=== PATIENT | male | born 1950 | race Caucasian/White ===

== ENCOUNTER 2024-11-22 13:22 | Outpatient (REF) | payer SELFPAY ==
[2024-11-22 18:48] LABS: HCT 28.1 % (40.0-50.0); HGB 8.7 g/dL (13.5-17.5); MCH 27.8 pg (27.0-33.0); MCV 90 fL (80-95); MPV 10.1 fL (8.0-11.0); Platelet Count 337 10^3/uL (130-400); RBC 3.13 10^6/uL (4.36-5.78); RDW 17.6 % (11.8-14.1); RDW-SD 58.1 fL; WBC 11.34 10^3/uL (4.4-10.8)
[2024-11-22 19:22] LABS: Hemoglobin A1C 5.9 % (<5.7)
[2024-11-22 19:23] LABS: ALT 15 U/L (16-63); AST 11 U/L (15-37); Albumin 2.9 g/dL (3.4-5.0); Alkaline Phosphatase 64 U/L (46-116); Anion Gap 9.2 mmol/L (3-11); BUN 52 mg/dL (7-18); Bilirubin, Total 0.46 mg/dL (0.2-1.0); CO2 25.8 mmol/L (21.0-32.0); Calcium 8.9 mg/dL (8.5-10.1); Calculated LDL 63 mg/dL (<100); Chloride 107 mmol/L (98-107); Cholesterol 120 mg/dL (<200); Estimated GFR 14.11 (mL/min/1.73m2); Glucose 82 mg/dL (74-106); HDL Cholesterol 43 mg/dL (40-60); Sodium 142 mmol/L (136-145); TSH 1.85 uIU/mL (0.36-3.74); Triglyceride 71 mg/dL (<150)
[2024-11-22 19:34] LABS: CREATININE 4.2 mg/dL (0.70-1.30)
[2024-11-22 21:44] LABS: Abs Immature Grans 0.06 10^3/uL (0.0-0.06); Absolute Basophil Count 0.03 10^3/uL (0.0-0.2); Absolute Eosinophil Count 0.01 10^3/uL (0.0-0.7); Absolute Lymphocyte Count 0.75 10^3/uL (1.2-3.4); Absolute Monocyte Count 0.57 10^3/uL (0.1-0.8); Absolute Neutrophil Count 9.83 10^3/uL (1.2-6.7); Basophils % 0.3 %; Eosinophils % 0.1 %; Immature Grans % 0.5 %; Lymphocytes % 6.7 %; Monocytes % 5.1 %; Neutrophils % 87.3 %
== END 2024-11-22 13:23 | disposition home or self-care (01) ==
LOC: NCHCN 13:22
PROVIDERS: Visit Provider Family Medicine
DX: R42 Dizziness and giddiness (principal); R94.31 Abnormal electrocardiogram [ECG] [EKG]
CPT/HCPCS: 80053; 80061; 85027; 83036; 84443; 85025

== ENCOUNTER 2024-11-23 10:18 | Inpatient (IN) | payer MEDICARE, SELFPAY ==
[2024-11-23 10:23] VITALS: BP 145/77; PULSE 66; RESP 16; TEMP 37
[2024-11-23 10:45] VITALS: BP 145/77; PULSE 66; RESP 16; TEMP 37
--- NOTE | 2024-11-23 11:00 | DI.CT_ITS ---
Exam(s) CT ABDOMEN PELVIS WO EXAM: CT ABDOMEN PELVIS WO CLINICAL HISTORY: obstructive uropathy. TECHNIQUE: Imaging Protocol: Axial computed tomography images with coronal and sagittal reformatted images were created and reviewed. Oral: no COMPARISON: US POCUS EXAM from 11/23/2024 FINDINGS: Lung Bases: No acute findings. Liver: Normal density. No suspicious mass. Gallbladder and biliary tract: No radiodense calculus or biliary dilation. Pancreas: Normal density. No abnormal calcifications or inflammatory process. Spleen: Normal. Kidneys: Normal size, contour and axis. No radiodense stones. Moderate to severe bilateral hydroneph rosis. Ureters are dilated down to the ureterovesical junctions bilaterally. No suspicious masses s een. Adrenal glands: No masses seen. Lymph nodes: Within normal limits. Vasculature: Abdominal aorta non-dilated. Soft tissues: Unremarkable. Bladder: Sanchez catheter. No wall thickening. No visible mass or calculi. The density of the contents of the bladder appears higher than normal which could indicate hemorrhage. Bowel: No obstruction or bowel wall thickening. The appendix is normal. Moderate to increased gema tity of stool. Peritoneal cavity: No ascites. No focal collection. No mesenteric inflammatory response. Reproductive organs: Prostate is mildly enlarged. Bones: Spondylolysis and significant spondylolisthesis, approximately 50 percent. Severe narrowing o f the L5-S1 disc. IMPRESSION: Severe bilateral hydronephrosis. The ureter dilated down to the ureterovesical junctions. No obstru cting stones are visible. Findings called to Dr. Silverman of the emergency department. RADIATION DOSE DELIVERED: 405.47mGy.cm Total DLP DATA REPOSITORY: All CT scans at this facility are submitted to the National Radiology Data Registry (NRDR) Dose Index Registry (DIR) with the [employer] [place] ([employer]). RADIATION OPTIMIZATION: All CT scans at this facility use at least one of these dose optimization te chniques: automated exposure control; mA and/or kV adjustment per patient size (includes targeted exa ms where dose is matched to clinical indication); or iterative reconstruction.
--- NOTE | 2024-11-23 11:14 | ED.GENADUL_ITS ---
Discharge Plan Discharge Details Chief Complaint: GenMedical Primary Care Provider: Td Haskins ED Provider: Nancy Silverman Home Meds and New Rx's Prescriptions: No Action No Known Home Meds HPI General Mode of arrival: ambulatory . Date/Time Provider Initiated Documentation: 11/23/24 10:25 . Limitations to Documentation: no limitations . Information obtained by: patient, family and old records reviewed . HPI Narrative: HPI: This is a 73-year-old male patient presenting for evaluation of renal failure identified on outpatient labs. The patient reports that he does not typically go to the doctors at all, does not have any diagnosed medical conditions, but does suffer from tremors. 6 weeks ago he had an episode of fecal incontinence, and had a second 1 last Thursday, which prompted him to seek care with his provider. They ordered outpatient labs, and contact him to let him know that his renal function was quite poor and encouraged him to seek care. The patient reports that he has been feeling largely well for himself, does sta te that he sometimes has difficulty passing urine, feels the urge to go but nothing comes out. He has not noted any dysuria or hematuria, denies abdominal or back pain. Has not had fevers or chills. He has been eating and drinking normally for himself, was drinking 120 ounces of apple juice per day, which was stopped in the setting of the fecal incontinence as it was thought to potentially be contributing. He drinks a gallon of water a day now, states that he does not use any nicotine or tobacco or alcohol products. Exam: Gen: Awake and alert, in no apparent distress HEENT: Non-icteric sclera Neck: Supple Lungs: No apparent respiratory distress, normal respiratory effort. Lung sounds clear and equal bilaterally without wheezes, rhonchi, rales CV: Appears well perfused, heart with regular rate and rhythm, no murmurs Abdomen: Distended lower abdomen with a palpable firm bladder up to the level of the umbilicus, no tenderness to palpation MSK: Moves 4 extremities without apparent limitation in ROM Skin: Visualized skin without rashes, cyanosis. Neuro: Normal Gait, no obvious focal deficits or facial asymmetry. Speaks in full, clear sentences. Psych: Appropriate for situation. MDM: This is a 73-year-old male patient sent from his primary care provider with kidney dysfunction on outpatient labs. Differential includes but is not limited to obstructive uropathy, likely due to prostate disease in this demographic, certainly considered obstructing stones, intra-abdominal mass. Considered kidney injury, metabolic derangements, dehydration, intrinsic abnormalities including nephritic syndrome, ATN, AIN. The patient does not have any excessive NSAID use reported, has been drinking an appropriate amount of water. He has no back pain or recent injuries to suggest a neurologic cause of his bladder dysfunction. We will place a Sanchez catheter given the large volume of urine appreciated on POCUS, with bilateral severe hydronephrosis. We will obtain laboratory studies to include CBC, CMP, magnesium, and troponin. I will obtain a urinalysis as well as a Noncon CT to evaluate for etiology of obstruction. ED Course: I reviewed the patient's laboratory studies, which show no leukocytosis, but does demonstrate an anemia to 7.8, no thrombocytopenia. Chemistry panel with a mildly elevated potassium to 5.3, BUN 58, creatinine 3.9, no liver dysfunction. Troponin was negative, UA concerning for infection with moderate blood, nitrite positive and large leukocyte esterase with pyuria. For this reason I did start the patient on ceftriaxone. He had 1300 cc of outpu t immediately after Sanchez placement, I's and O's monitored to ensure the recognition of postobstructive diuresis if it occurs. I did reach out to our hospitalist who is graciously accepted this patient for admission to their service for ongoing workup and management. Patient remained hemodynamically appropriate while under my care, transferred to the care of the hospitalist service without incident Nancy Silverman MD Related Data Home Medications ?Medication ?Instructions ?Recorded ?Confirmed Unknown [No Known Home Meds] 11/23/24 11/23/24 Allergies Allergy/AdvReac Type Severity Reaction Status Date / Time No Known Allergies Allergy Verified 11/23/24 10:26 General Stated Complaint: GenMedical ANANT: 3 Course Vital Signs Vital signs: Vital Signs Temperature 37.0 C 11/23/24 10:23 Pulse 66 11/23/24 10:23 Respiratory Rate 16 11/23/24 10:23 Blood Pressure 145/77 H 11/23/24 10:23 Temperature 37.0 C 11/23/24 10:45 Temperature Source Oral 11/23/24 10:45 Pulse 66 11/23/24 10:45 Respiratory Rate 16 11/23/24 10:45 Blood Pressure 145/77 H 11/23/24 10:45 Blood Pressure Position Sitting 11/23/24 10:45 Oxygen Delivery Method Room Air 11/23/24 10:45 Oxygen Flow Rate 0 11/23/24 10:45 Pain Level 0 11/23/24 10:45 Medical Decision Making Quality:SDOH Health Related Social Needs: No Data to Display PFSH All Active Problems (Updated 11/23/24 @ 14:35 by Neymar Gary DO) Anemia (Chronic) Renal failure (Chronic) Social History Smoking risk assessment performed?: No Alcohol Intake: former Drug use: Daily Substance use type: marijuana Details: Pt states he used to smoke marijuana daily. Do you feel safe at home: Yes Do you feel safe in your relationship?: Yes POCUS Exam (ED) Limited Bladder Exam DATE OF EXAM: 11/23/24 TIME OF EXAM: 11:20 PROVIDER THAT PERFORMED THE STUDY: Nancy Silverman IS THIS A REPEAT EXAM DURING THIS ENCOUNTER: no REASON FOR EXAM: Urinary retention VISUALIZED STRUCTURES: Bladder PERTINENT FINDINGS/IMPRESSION: other impression: Dilated bladder Exam complete Limited Retroperitoneal(Renal)Exam DATE OF EXAM: 11/23/24 TIME OF EXAM: 11:21 PROVIDER THAT PERFORMED THE STUDY: Nancy Silverman IS THIS A REPEAT EXAM DURING THIS ENCOUNTER: No REASON FOR EXAM: Acute renal failure VISUALIZED STRUCTURES: Left kidney, Right kidney, Renal pelvis,left side and Renal pelvis, right side PERTINENT FINDINGS/IMPRESSION: Hydronephrosis present bilaterally Exam complete
[2024-11-23 12:23] LABS: Bilirubin Negative (Negative); Blood Moderate (Negative); Clarity Sl Cloudy (Clear); Glucose Negative (Negative); Ketones Negative (Negative); Leukocyte Esterase Large (Negative); Nitrite Positive (Negative); Specific Gravity <= 1.005 (1.005-1.025); Urobilinogen 0.2 mg/dL (Up to 0.2); pH 5.5 (5-8)
[2024-11-23 12:35] LABS: Epithelial Cells Few HPF (Negative)
[2024-11-23 12:37] LABS: Bacteria Many HPF (Negative); Crystals Negative HPF (Negative); Mucus Negative (Negative)
[2024-11-23 12:38] LABS: C & S Indicated? Yes; Casts Negative LPF (Negative)
[2024-11-23 12:39] LABS: Abs Immature Grans 0.05 10^3/uL (0.0-0.06); Absolute Basophil Count 0.03 10^3/uL (0.0-0.2); Absolute Eosinophil Count 0.01 10^3/uL (0.0-0.7); Absolute Monocyte Count 0.53 10^3/uL (0.1-0.8); Basophils % 0.3 %; Eosinophils % 0.1 %; HCT 24.9 % (40.0-50.0); HGB 7.8 g/dL (13.5-17.5); Immature Grans % 0.5 %; Lymphocytes % 7.6 %; MCH 27.9 pg (27.0-33.0); MCHC 31.3 % (32.0-36.0); MCV 89 fL (80-95); MPV 9.3 fL (8.0-11.0); Monocytes % 4.9 %; Neutrophils % 86.6 %; Platelet Count 266 10^3/uL (130-400); RDW 17.5 % (11.8-14.1); RDW-SD 57.4 fL; WBC 10.86 10^3/uL (4.4-10.8)
[2024-11-23 12:39] LABS: WBC >50 HPF (0-5)
[2024-11-23 12:50] LABS: Absolute Lymphocyte Count 0.83 10^3/uL (1.2-3.4)
[2024-11-23 13:01] LABS: ALT 15 U/L (16-63); AST 11 U/L (15-37); Albumin 2.6 g/dL (3.4-5.0); Alkaline Phosphatase 58 U/L (46-116); BUN 58 mg/dL (7-18); Bilirubin, Total 0.38 mg/dL (0.2-1.0); Calcium 8.8 mg/dL (8.5-10.1); Chloride 109 mmol/L (98-107); Estimated GFR 15.42 (mL/min/1.73m2); Glucose 95 mg/dL (74-106); Magnesium 2.1 mg/dL (1.8-2.4); Potassium 5.3 mmol/L (3.5-5.1); Sodium 142 mmol/L (136-145); Total Protein 6.9 g/dL (6.4-8.2); Troponin I 7 ng/L (<or=76)
[2024-11-23 13:02] LABS: CREATININE 3.9 mg/dL (0.70-1.30)
[2024-11-23] MEDS: cefTRIAXone 1 GM/50 ML BAG IVPB (13:30)
--- NOTE | 2024-11-23 14:24 | HPE_ITS ---
Date of service: 11/23/24 Time of Service: 14:24 Assessment and Plan Assessment and plan (1) Renal failure: Status: Chronic Assessment and plan: - suspect this is post-renal obstruction considering findings. BPH/UTI may be contributing. suspect this is also etiology of his bowel dysfunction - maintain carrillo for now - given CTX in ER, will continue this for now pending cultures - check PSA - urology consultation (Dr. Wood is not available today but we can touch base tomorrow) (2) Anemia: Status: Chronic Assessment and plan: - unclear if this is related to LAURY or if this a separate finding. normocytic - heme check stool - check Fe/TIBC/B12/folate - i did discuss potential need for colonoscopy as part of workup, can pursue this as outpatient History of Present Illness History of Present Illness Chief Complaint: bowel incontinence/vertigo N arrative: This is a 73 yo male with no pmhx that has not seen a physician in 40 years until yesterday that presents today with bowel incontinence, vertigo, and abnormal labwork. Patient is accompanied by daughter and is a limited historian. For approx 8 weeks, patient has noted that he has had uncontrollable incontinence of bowels. Stool was loose, roving frame tender colored, and watery. No blood. No abd pain. No n/v. Did have a generalized feeling of sick but was not able to localize this further. However, he did note that he was consuming large amounts of fluids (120 oz daily of apple juice or water) and was not having much urination despite feeling pressure. Eventually was brought for new patient appointment yesterday and had labwork. Was called later in the day (7pm) and told that he should present to the ER but had just started dinner so did not come until this AM. In ER, workup revealed significant LAURY with b/l hydro, all likely due to urinary retention. Carrillo was placed and patient had 1300cc diuresis of purulent urine. Review of Systems Constitutional Constitutional: Reports lethargy, Reports malaise and Reports poor appetite ENT Ears, Nose, Mouth, and Throat: Denies odynophagia Cardiovascular Cardiovascular: Denies chest pain, Denies irregular heart rhythm, Denies leg edema and Denies dyspnea Respiratory Respiratory: Denies cough and Denies dyspnea Gastrointestinal Gastrointestinal: Denies abdominal pain, Denies melena, Denies hematochezia, Reports change in stool character, Denies coffee ground emesis, Reports fecal incontinence, Denies odynophagia and Denies vomiting Genitourinary Genitourinary: Denies hematuria, Reports oliguria, Reports difficulty urinating, Denies dysuria, Denies flank pain and Denies nocturia Neurologic Neurologic: Reports system reviewed and no additional complaints, except as documented Endocrine Endocrine: Reports system reviewed and no additional complaints, except as documented Hematologic/Lymphatic Hematologic/Lymphatic: Reports system reviewed and no additional complaints, except as documented Allergic/Immunologic Allergic/Immunologic: Reports system reviewed and no additional complaints, except as documented PFSH All Active Problems (Updated 11/23/24 @ 14:35 by Neymar Gary DO) Anemia (Chronic) Renal failure (Chronic) Social History Smoking risk assessment performed?: No Alcohol Intake: former Drug use: Daily Substance use type: marijuana Details: Pt states he used to smoke marijuana daily. Do you feel safe at home: Yes Do you feel safe in your relationship?: Yes Meds Allergies and Home Medications Allergies Allergy/AdvReac Type Severity Reaction Status Date / Time No Known Allergies Allergy Verified 11/23/24 10:26 Home Medications ?Medication ?Instructions ?Recorded ?Confirmed ?Type Unknown [No Known Home Meds] 11/23/24 11/23/24 History Exam Const General: cooperative, comfortable and no acute distress Nutritional Appearance: thin Orientation: alert, awake and oriented x3 HENMT Head: normal to inspection Eyes General: appearance normal, both eyes and all related structures Chest Chest: normal inspection of the chest Resp Effort & Inspection: normal respiratory effort Auscultation: clear to auscultation bilaterally, no rales, no rhonchi and no wheezes Cardio Rate: regular rate Rhythm: regular rhythm Heart Sounds: S1 normal and S2 normal GI Inspection: normal to inspection Palpation: soft, no guarding and nontender Auscultation: normal bowel sounds General: No CVA tenderness Neuro Cranial Nerves: CN's II-XI intact bilaterally Extrem General: normal to inspection Results Labs 11/23/24 12:35 11/23/24 12:35 Labs: Laboratory Results - last 24 hr 11/23/24 11/23/24 12:00 12:35 WBC 10.86 H RBC 2.80 L Hgb 7.8 L Hct 24.9 L MCV 89 MCH 27.9 MCHC 31.3 L RDW 17.5 H Plt Count 266 MPV 9.3 Immature Gran % 0.5 Neutrophils % 86.6 Lymphocytes % 7.6 Monocytes % 4.9 Eosinophils % 0.1 Basophils % 0.3 Nucleated RBC % 0.0 Absolute Neutrophils 9.40 H Absolute Lymphocytes 0.83 L Absolute Monocytes 0.53 Absolute Eosinophils 0.01 Absolute Basophils 0.03 Sodium 142 Potassium 5.3 H Chloride 109 H Carbon Dioxide 25.0 Anion Gap 8.0 BUN 58 H Creatinine 3.9 H* Est GFR (CKD-EPI 2020) 15.42 Glucose 95 Calcium 8.8 Magnesium 2.1 Total Bilirubin 0.38 AST 11 L ALT 15 L Alkaline Phosphatase 58 Troponin I 7 Total Protein 6.9 Albumin 2.6 L Urine Color Yellow Urine Clarity Sl Cloudy Urine pH 5.5 Ur Specific [place] <= 1.005 Urine Protein 30 H Urine Ketones Negative Urine Blood Moderate H Urine Nitrite Positive H Urine Bilirubin Negative Urine Urobilinogen 0.2 Ur Leukocyte Esterase Large H Urine RBC Not Applicable Urine WBC >50 H Ur Epithelial Cells Few Urine Crystals Negative Urine Bacteria Many Urine Casts Negative Urine Mucus Negative Ur Culture Indicated? Yes Urine Glucose Negative Last Vital Signs Temp 37.0 C 11/23/24 10:45 Pulse 66 11/23/24 10:45 Resp 16 11/23/24 10:45 BP 145/77 H 11/23/24 10:45 Time Spent Time spent with Patient: <40 minutes Time was spent: preparing to see the patient(eg.review tests), ordering medications,tests, procedures, referring, communicating with other health manager respiratory care, indepentently interpreting results, counseling the patient and care coordination
[2024-11-23 15:20] LABS: Troponin I 7 ng/L (<or=76)
[2024-11-23 21:26] VITALS: BP 140/70; PULSE 60; RESP 16; O2SAT 98
--- NOTE | 2024-11-23 21:30 | W.PCEDHO ---
Registration Status: Primary Language: Preferred Language: ED Information & Data Chief Complaint GenMedical 11/23/24 11:14 Triage Note Pt arrives to ED stating he 11/23/24 10:23 had blood work done yesterday w/ his PCP and his blood work showed renal failure. Pt has not seen a PCP in several years. Most Recent Vital Signs Temperature 37.0 C 11/23/24 10:45 Temperature Source Oral 11/23/24 10:45 Pulse 66 11/23/24 10:45 Respiratory Rate 16 11/23/24 10:45 Blood Pressure 145/77 H 11/23/24 10:45 Blood Pressure Position Sitting 11/23/24 10:45 Oxygen Delivery Method Room Air 11/23/24 10:45 Oxygen Flow Rate 0 11/23/24 10:45 Pain Level 0 11/23/24 10:45 Allergies No Known Allergies Allergy (Verified 11/23/24 10:26) Precautions Isolation Standard precaution 11/23/24 10:27 IV IV Catheter Type [Right Saline Lock Antecubital] IV Catheter Gauge [Right 20 Antecubital] Diagnostics 11/23/24 11/23/24 11/23/24 Range/Units 14:50 14:10 12:35 WBC 10.86 H (4.4-10.8) 10^3/uL RBC 2.80 L (4.36-5.78) 10^6/uL Hgb 7.8 L (13.5-17.5) g/dL Hct 24.9 L (40.0-50.0) % MCV 89 (80-95) fL MCH 27.9 (27.0-33.0) pg MCHC 31.3 L (32.0-36.0) % RDW 17.5 H (11.8-14.1) % Plt Count 266 (130-400) 10^3/uL MPV 9.3 (8.0-11.0) fL Immature Gran % 0.5 % Neutrophils % 86.6 % Lymphocytes % 7.6 % Monocytes % 4.9 % Eosinophils % 0.1 % Basophils % 0.3 % Nucleated RBC % 0.0 (0.0-0.3) % Absolute Neutrophils 9.40 H (1.2-6.7) 10^3/uL Absolute Lymphocytes 0.83 L (1.2-3.4) 10^3/uL Absolute Monocytes 0.53 (0.1-0.8) 10^3/uL Absolute Eosinophils 0.01 (0.0-0.7) 10^3/uL Absolute Basophils 0.03 (0.0-0.2) 10^3/uL Sodium 142 (136-145) mmol/L Potassium 5.3 H (3.5-5.1) mmol/L Chloride 109 H (98-107) mmol/L Carbon Dioxide 25.0 (21.0-32.0) mmol/L Anion Gap 8.0 (3-11) mmol/L BUN 58 H (7-18) mg/dL Creatinine 3.9 H* (0.70-1.30) mg/dL Est GFR (CKD-EPI 2020) 15.42 (mL/min/1.73m2) Glucose 95 (74-106) mg/dL Calcium 8.8 (8.5-10.1) mg/dL Magnesium 2.1 (1.8-2.4) mg/dL Total Bilirubin 0.38 (0.2-1.0) mg/dL AST 11 L (15-37) U/L ALT 15 L (16-63) U/L Alkaline Phosphatase 58 (46-116) U/L Troponin I 7 Cancelled 7 (<or=76) ng/L Total Protein 6.9 (6.4-8.2) g/dL Albumin 2.6 L (3.4-5.0) g/dL Urine Color (Yellow) Urine Clarity (Clear) Urine pH (5-8) Ur Specific [place] (1.005-1.025) Urine Protein (Neg-Trace) mg/dL Urine Ketones (Negative) mg/dL Urine Blood (Negative) Urine Nitrite (Negative) Urine Bilirubin (Negative) Urine Urobilinogen (Up to 0.2) mg/dL Ur Leukocyte Esterase (Negative) Urine RBC Urine WBC (0-5) HPF Ur Epithelial Cells (Negative) HPF Urine Crystals (Negative) HPF Urine Bacteria (Negative) HPF Urine Casts (Negative) LPF Urine Mucus (Negative) Ur Culture Indicated? Urine Glucose (Negative) mg/dL 11/23/24 Range/Units 12:00 WBC (4.4-10.8) 10^3/uL RBC (4.36-5.78) 10^6/uL Hgb (13.5-17.5) g/dL Hct (40.0-50.0) % MCV (80-95) fL MCH (27.0-33.0) pg MCHC (32.0-36.0) % RDW (11.8-14.1) % Plt Count (130-400) 10^3/uL MPV (8.0-11.0) fL Immature Gran % % Neutrophils % % Lymphocytes % % Monocytes % % Eosinophils % % Basophils % % Nucleated RBC % (0.0-0.3) % Absolute Neutrophils (1.2-6.7) 10^3/uL Absolute Lymphocytes (1.2-3.4) 10^3/uL Absolute Monocytes (0.1-0.8) 10^3/uL Absolute Eosinophils (0.0-0.7) 10^3/uL Absolute Basophils (0.0-0.2) 10^3/uL Sodium (136-145) mmol/L Potassium (3.5-5.1) mmol/L Chloride (98-107) mmol/L Carbon Dioxide (21.0-32.0) mmol/L Anion Gap (3-11) mmol/L BUN (7-18) mg/dL Creatinine (0.70-1.30) mg/dL Est GFR (CKD-EPI 2020) (mL/min/1.73m2) Glucose (74-106) mg/dL Calcium (8.5-10.1) mg/dL Magnesium (1.8-2.4) mg/dL Total Bilirubin (0.2-1.0) mg/dL AST (15-37) U/L ALT (16-63) U/L Alkaline Phosphatase (46-116) U/L Troponin I (<or=76) ng/L Total Protein (6.4-8.2) g/dL Albumin (3.4-5.0) g/dL Urine Color Yellow (Yellow) Urine Clarity Sl Cloudy (Clear) Urine pH 5.5 (5-8) Ur Specific [place] <= 1.005 (1.005-1.025) Urine Protein 30 H (Neg-Trace) mg/dL Urine Ketones Negative (Negative) mg/dL Urine Blood Moderate H (Negative) Urine Nitrite Positive H (Negative) Urine Bilirubin Negative (Negative) Urine Urobilinogen 0.2 (Up to 0.2) mg/dL Ur Leukocyte Esterase Large H (Negative) Urine RBC Not Applicable Urine WBC >50 H (0-5) HPF Ur Epithelial Cells Few (Negative) HPF Urine Crystals Negative (Negative) HPF Urine Bacteria Many (Negative) HPF Urine Casts Negative (Negative) LPF Urine Mucus Negative (Negative) Ur Culture Indicated? Yes Urine Glucose Negative (Negative) mg/dL 11/23/24 12:00 Urine Culture - Pending Urine - Reflex from Ua Intake and Output - 24 Hour Total 11/23/24 10:18 thru 11/23/24 19:57 Intake Total 180 Output Total 2750 Balance -2570 Weight 79.379 kg Intake: IV 60 Oral 120 Output: Urine 2750 Urinary Catheter Urinary Catheter Date of 11/23/24 Insertion [Urethral (Sanchez)] Time of insertion [Urethral ( 12:09 Sanchez)] Falls Risk Assessment History of Falls No History 11/23/24 10:46 Contributing Factors No Factors 11/23/24 10:46 Ambulatory Aids Independent 11/23/24 10:46 Tubes/Lines W/no contributing factors 11/23/24 10:46 Gait Evaluation No gait disturbance 11/23/24 10:46 Cognition No cognitive impairment 11/23/24 10:46 Fall Total Score 10 11/23/24 10:46 Level of Risk Standard/Low Risk 11/23/24 10:46 Problems Anemia (Chronic) Renal failure (Chronic) v v v v v v v v v Sending and/or Receiving Nurses: Please use comment section below to note any information pertinent to the patient hand-off not included above. Information / Comments:no questions Report received from:MARNIE Poon
[2024-11-23 21:52] VITALS: BP 150/73; PULSE 63; RESP 20; TEMP 37.2; O2SAT 99
[2024-11-23] MEDS: Normal Saline Flush 10 ML SYR IVP (23:15)
[2024-11-24 06:46] LABS: Abs Immature Grans 0.03 10^3/uL (0.0-0.06); Absolute Basophil Count 0.04 10^3/uL (0.0-0.2); Absolute Eosinophil Count 0.05 10^3/uL (0.0-0.7); Absolute Monocyte Count 0.59 10^3/uL (0.1-0.8); Absolute Neutrophil Count 6.23 10^3/uL (1.2-6.7); Basophils % 0.5 %; Eosinophils % 0.6 %; HCT 26.9 % (40.0-50.0); HGB 8.4 g/dL (13.5-17.5); Immature Grans % 0.4 %; Lymphocytes % 13.7 %; MCH 27.7 pg (27.0-33.0); MCHC 31.2 % (32.0-36.0); MCV 89 fL (80-95); Monocytes % 7.3 %; Neutrophils % 77.5 %; Platelet Count 277 10^3/uL (130-400); RBC 3.03 10^6/uL (4.36-5.78); RDW 17.4 % (11.8-14.1); RDW-SD 57.1 fL; WBC 8.04 10^3/uL (4.4-10.8)
[2024-11-24 06:56] LABS: Anion Gap 6.4 mmol/L (3-11); BUN 55 mg/dL (7-18); CO2 27.6 mmol/L (21.0-32.0); Calcium 9.1 mg/dL (8.5-10.1); Chloride 111 mmol/L (98-107); Estimated GFR 16.43 (mL/min/1.73m2); Glucose 89 mg/dL (74-106); Potassium 4.9 mmol/L (3.5-5.1); Sodium 145 mmol/L (136-145)
[2024-11-24 07:08] LABS: CREATININE 3.7 mg/dL (0.70-1.30)
[2024-11-24 07:18] VITALS: BP 135/64; PULSE 54; RESP 16; TEMP 37.1; O2SAT 94
[2024-11-24 07:22] LABS: Iron 24 ug/dL (65-175); Total Iron Binding Capacity 142 ug/dL (250-450); Transferrin Sat 17 % (20-55)
[2024-11-24 07:45] LABS: Vitamin B12 443 pg/mL (193-986)
[2024-11-24] MEDS: Normal Saline Flush 10 ML SYR IVP ×2 (07:49→22:54)
[2024-11-24] MEDS: cefTRIAXone 1 GM/50 ML BAG IVPB (09:33)
--- NOTE | 2024-11-24 11:57 | INITIAL_ITS ---
Date of service: 11/24/24 Time of Service: 11:57 Care Management Initial Assmt Initial Assessment Reason for Hospitalization: renal failure Functional Status/Living Situation Patient Presentation: Rashad was sitting up in a chair when CM met with him. He was polite but seemed a little wary. Rashad was admitted with LAURY. He has been having diarrhea with incontinence for the past 2 months and has been feeling generally unwell. His Creatinine was 4.2 on admission and is still 3.7. He is also growing gram negative rods in his urine. Rashad lives alone in an apartment in a 2 family home. He lives on the 3rd floor and his landlord lives on the first 2 floors. Rashad is retired but previously worked at the [employer]. He is independent with ADLs and does not receive any community services. Rashad does not have any family nearby. He does have 2 friends who are very helpful and supportive. He met both women through his employment. Rashad has a visible tremor and what he describes as a shuffling gait. He informed that he has not had a PCP for decades and that he has just established with one: Td Haskins at [facility]. Rashad admitted that he has been getting much weaker. He does not have any assistance with ADLs or IADLs but would likely benefit from some services. Rashad stated that he is stubborn and very likely will not accept services if offered or recommended. He even indicated that he would not be willing to have a PT evaluation. Town of Residence: [place], [place] Resides with: Child (lives with daughter) Natural Supports: two friends: Alexander Low and Arianna Clarke. Employment Status: Retired Instrumental Activities of Daily Living (ADLs): Independent Medications Medication Management: No Issues/Barriers identified Advance Directives Advance Directives: Do you have an Advance Directive: N 11/24/24 07:10 AD On File at [facility]: N 11/24/24 07:10 Date Asked 11/23/24 11/24/24 07:10 AD Date Reviewed COLST On File at [facility] COLST Date Scanned Code Status Resuscitation Status Full Code Portal Pt does not currently have a portal and education provided: Yes Insurance Coverage/Financial Issues Insurance: Medicare Part A Care Team Visit Care Team Role Provider Type Td Haskins Primary Care Provider NON-[facility] STAFF PHYSICIAN Janna Kelly Other Providers REG OCCUPATIONAL THERAPIST InPatient Jace Campuzano Other Providers OTHER Javad Wood MD Other Providers [facility] STAFF PHYSICIAN Nancy Silverman MD Emergency Provider [facility] STAFF PHYSICIAN Neymar Gary DO Admit Provider [facility] STAFF PHYSICIAN Attending Provider Discharge Potential Discharge Needs: PCP F/U Appt Anticipated Barriers to Discharge: None Identified Patient/Family Education Needs: Review discharge instructions, discuss Ask Me Three Transportation: Private vehicle Plan: Anticipate Jude will be discharged home when medically cleared. If home health services are ordered he may not accept them.He will follow up with his community providers and plan of care and transport with family. CM will follow and continue to assess for discharge needs. Social Determinants of Health Screening Social Determinants of Health last assessed: 11/24/24 Will the Patient Participate in the Screening?: Yes Do you worry about having a steady place to live?: no Problems where you live: no known problems In the past 12 months, have you had to go without electric, gas, oil or water in your home?: no Have you or anyone in your house had to go without enough food to eat?: no Has lack of transportation kept you from medical appointments or from doing things needed for daily living?: no Has anyone in your life made you feel unsafe or unsupported?: no How hard is it for you to pay for the very basics like food, housing, medical care, and heating? Would you say it is:: Somewhat hard Do you want help finding or keeping work or a job?: I do not need or want help If for any reason you need help with day-to-day activities such as bathing, preparing meals, shopping, managing finances, etc., do you get the help you n eed?: I could use a little more help How often do you feel lonely or isolated from those around you?: Never Do you speak a language other than Sierra Leonean at home?: No Does the patient want assistance with any of the above?: No Health Related Social Needs Health related social needs: problems related to housing/economic circumstances (Z59.89) and problems with daily activities (Z73.9) PFSH All Active Problems (Updated 11/23/24 @ 14:35 by Neymar Gary DO) Anemia (Chronic) Renal failure (Chronic) Social History Smoking risk assessment performed?: No Alcohol Intake: former Drug use: Daily Substance use type: marijuana Details: Pt states he used to smoke marijuana daily. Housing: apartment Do you feel safe at home: Yes Do you feel safe in your relationship?: Yes
--- NOTE | 2024-11-24 12:39 | OTIE_ITS ---
Occupational Therapy Notes Inpatient Occupational Therapy Evaluation Date: 11/24/24 Referring Doctor: Neymar Gary OT Orders: Non urgent Precautions: Fall, Standard, full PATIENT PROFILE/ADMITTING DIAGNOSIS: Pt is a 73 year old male who presented to the ED on 11/22/24. He is admitted and dx with the following, renal failure and anemia. Past Medical History: All Active Problems (Updated 11/23/24 @ 14:35 by Nemyar Gary, DO) Anemia (Chronic) Renal failure (Chronic) Social History/Home Situation: Pt states that he lives on the 3rd floor in an apartment. He has 19 steps to enter and reports that he shuffles to get in and out of his apartment. He states that his plan was to stop driving but is reconsidering this based on his recent dx. He describes his ADL routine as he hopes for the best. He states that he starts with his socks or shoes and then sits down in a chair to put on his pants and sweatshirt. He notes that he does not shower but utilizes wipes to clean himself up. He states, I am not going to change this regarding anyone elses standards this works for me. He notes that he has done htis for a number of years and feels that this iswhat works best. He denies any cane or walker. He states that he was in process of getting HH services but notes that its taking time for this. He lives with his two cats. He has a full body tremor- he notes that he has had this all of his life. It seems by pts description of this tremor that stress greatly impacts it from day to day. When sitting his (B) LE tremor as well. Equipment owned/DME: None per pt report. SUBJECTIVE: Pt is not receptive to OT consult at this time. He notes that he manages and functions in his day to day routines. He does not feel that he needs services. OT does explain to pt the process of OT services and assistance it can provide. He notes that he will talk with his friends to see if it is worth his time while he is here. OBJECTIVE: General Observation: Sanchez in place, IV in (R) UE Mental Status: A&Ox3 Pain: No c/o pain. ROM: RUE AROM WFL L UE Limited shoulder flexion d/t impingement of the shoulder, elbow WFL, hand and digits WFL STRENGTH: RUE Shoulder flexion 4/5, bicep/tricep 4/5, director of operations 3+/5 LUE Shoulder flexion 4/5, bicep/tricep 4/5, director of operations 5/5 FUNCTIONAL MOBILITY/ADLS: BATHING NT pt notes that his bathing routines utilizes wipes and he is not willing to change this. DRESSING Dressing UE NT with pt at todays session but he notes that he sits and is able to do this he denies performance due to lunch time. Dressing LE Able to perform in the sitting position and (I) with socks and shoes GROOMING NT TOILETING Sanchez in place EATING sitting in chair (I) with hand to mouth and use of silverware, appropriate use of utensils BALANCE: Static sitting Good Dynamic Sitting Good Static Standing NT Dynamic Standing NT SPECIAL TESTS: Daily Activity Limitations Standardized Measure [facility] AM -PAC ?6 clicks? Daily Activity Inpatient Short Form: Raw score: 19 Standardized score: 40.22 CMS score: 42.80% INFORMED CONSENT/EDUCATION: Pt instructed in purpose of OT Consult and plan of care. ASSESSMENT: Patient is a 73-year-old male referred to occupational therapy services with diagnosis of renal failure and anemia. Patient presents with clinical signs and symptoms consistent with dx, as demonstrated by the following impairment level findings/functional limitations: Impairments in ADL/IADL and leisure activities, decreased functional activity tolerance, decreased gross and fine motor control, essential tremor caused by increased stress, high risk for re-admission. Patient is assessed as a Moderate 45115 complexity based on the following: History: see above Examination: see functional limitations as noted above Presentation: Evolving Decision Making: [facility] score 19 GOALS Goals x1 week 1. Grooming- pt will be (I) and compliant with grooming routine with ideal technique standng at the sink 2. Dressing sitting in a chair pt will be (I) UE and mod (I) LE 3. Bathing sitting in chair (I) with UE and LE 4. Toileting (I) on toilet PLAN OF CARE/TREATMENT PLAN: 1x/day, 3-5 days/ week x 1week Initiate Occupational Therapy Services for bathing, dressing, grooming, toileting, eating, transfer training. DISCHARGE RECOMMENDATIONS OT recommends OT when medically cleared per MD for assessment of ADLs in the home setting vs. SNF due to pts functional mobility limitations, high risk of readmission, and decline in functional (I). TREATMENT TIME/MINUTES/CODES 05387, 20 minutes (12:20) Janna Kelly OTR/[facility] [place], [place]
--- NOTE | 2024-11-24 12:52 | W.PM.PROGNOT ---
Date of Service Date of service: 11/24/24 Time of Service: 12:52 Assessment and Plan Assessment and plan (1) Renal failure: Status: Chronic Assessment and plan: - LAURY, most likely post-renal - Cr has improved slightly, suspect it will continue to drop - nonoligouric with good urine output (1.7L from this AM) - PSA pending - urology to see today - PT/OT heydi (2) Anemia: Status: Chronic Assessment and plan: - unclear if this is related to LAURY or if this a separate finding. normocytic - heme check stool - labs appear to be combination of ACD and Fe deficiency. will start PO Fe repletion - again discussed need for outpatient colonoscopy Subjective Subjective Interval history since last seen: Seen and examined. No new medical complaints, had some concerns about the service (wanted nursing to check in on him more often). Denies any further diarrhea since admission. Carrillo continues to drain. No flank pain. Vitals stable and patient remains afebrile. Exam Const General: cooperative, comfortable and no acute distress Orientation: alert, awake and oriented x3 Chest Chest: normal inspection of the chest Resp Effort & Inspection: normal respiratory effort Auscultation: clear to auscultation bilaterally Cardio Rate: regular rate Rhythm: regular rhythm Heart Sounds: S1 normal and S2 normal GI Inspection: normal to inspection Palpation: soft, no hepatosplenomegaly and nontender Percussion: normal to percussion Auscultation: normal bowel sounds General: No CVA tenderness Other: carrillo inplace, draining clear yellow urine. Skin General skin exam: no rashes or lesions noted Neuro Cranial Nerves: CN's II-XI intact bilaterally Speech: speech normal Gait: normal gait Objective Last Vital Signs Temp 37.1 C 11/24/24 07:18 Pulse 54 L 11/24/24 07:18 Resp 16 11/24/24 07:18 BP 135/64 11/24/24 07:18 Pulse Ox 94 11/24/24 07:18 Laboratory Results - last 24 hr 11/23/24 11/23/24 11/23/24 12:35 14:10 14:50 WBC RBC Hgb Hct MCV MCH MCHC RDW Plt Count MPV Immature Gran % Neutrophils % Lymphocytes % Monocytes % Eosinophils % Basophils % Nucleated RBC % Absolute Neutrophils Absolute Lymphocytes Absolute Monocytes Absolute Eosinophils Absolute Basophils Sodium 142 Potassium 5.3 H Chloride 109 H Carbon Dioxide 25.0 Anion Gap 8.0 BUN 58 H Creatinine 3.9 H* Est GFR (CKD-EPI 2020) 15.42 Glucose 95 Calcium 8.8 Magnesium 2.1 Iron TIBC Transferrin % Sat Total Bilirubin 0.38 AST 11 L ALT 15 L Alkaline Phosphatase 58 Troponin I 7 Cancelled 7 Total Protein 6.9 Albumin 2.6 L Vitamin B12 Folate 11/24/24 11/24/24 11/24/24 05:35 06:00 06:00 WBC 8.04 RBC 3.03 L Hgb 8.4 L Hct 26.9 L MCV 89 MCH 27.7 MCHC 31.2 L RDW 17.4 H Plt Count 277 MPV 10.0 Immature Gran % 0.4 Neutrophils % 77.5 Lymphocytes % 13.7 Monocytes % 7.3 Eosinophils % 0.6 Basophils % 0.5 Nucleated RBC % 0.0 Absolute Neutrophils 6.23 Absolute Lymphocytes 1.10 L Absolute Monocytes 0.59 Absolute Eosinophils 0.05 Absolute Basophils 0.04 Sodium 145 Potassium 4.9 Chloride 111 H Carbon Dioxide 27.6 Anion Gap 6.4 BUN 55 H Creatinine 3.7 H* Est GFR (CKD-EPI 2020) 16.43 Glucose 89 Calcium 9.1 Magnesium 2.0 Iron 24 L TIBC 142 L Transferrin % Sat 17 L Total Bilirubin AST ALT Alkaline Phosphatase Troponin I Total Protein Albumin Vitamin B12 Cancelled 443 Folate Cancelled 11/24/24 06:00 WBC RBC Hgb Hct MCV MCH MCHC RDW Plt Count MPV Immature Gran % Neutrophils % Lymphocytes % Monocytes % Eosinophils % Basophils % Nucleated RBC % Absolute Neutrophils Absolute Lymphocytes Absolute Monocytes Absolute Eosinophils Absolute Basophils Sodium Potassium Chloride Carbon Dioxide Anion Gap BUN Creatinine Est GFR (CKD-EPI 2020) Glucose Calcium Magnesium Iron TIBC Transferrin % Sat Total Bilirubin AST ALT Alkaline Phosphatase Troponin I Total Protein Albumin Vitamin B12 Folate 18.0 Time Spent with Patient Time Spent with Patient: <25 minutes Time was spent: preparing to see the patient(eg.review tests), ordering medications,tests, procedures, indepentently interpreting results, counseling the patient and care coordination
[2024-11-24 15:24] VITALS: BP 126/62; PULSE 65; RESP 15; TEMP 37.1; O2SAT 98
--- NOTE | 2024-11-24 15:55 | UCONE_ITS ---
Date of service: 11/24/24 Time of Service: 15:55 Assessment and Plan Assessment and plan (1) Hydronephrosis: Status: Acute Assessment and plan: His serum creatinine is only slowly decreasing with catheter drainage of his bladder. Typically, for patients with an acute obstruction, I would expect the serum creatinine to improve much more dramatically and quickly. With him not having seen any medical providers in over 40 years, we have no idea what his baseline might be or how long this issue has been going on. For the time being, I do not think there is anything more to do then to leave his catheter until his serum creatinine stabilizes. We can then do a renal ultrasound to make sure he does not require higher drainage (nephrostomy tubes from interventional radiology). If he would like to consider possible surgical treatments for bladder outlet obstruction, we would certainly want to do a urodynamic study ahead of time to make sure he does still have some bladder contractility. During my discussions with the patient, he sounds very reluctant to leave his catheter in place. He does not believe that he be able to figure out how to empty the drainage bag. He is also very reluctant to have any type of surgical procedure done. He expresses regret about answering the phone instructing him to come to the hospital. It would be helpful if the discussion about his long- term wishes would occur. He told me he would think about whether or not he would like to continue with the catheter. I will ask the nurses to attempt to teach him how to care for a leg bag starting tomorrow. History of Present Illness History of Present Illness Chief Complaint: Hydronephrosis Narrative: This is a 73-year-old gentleman who apparently has not seen a medical provider for nearly 40 years. He is a very poor historian and cannot really tell me why he went to see a primary care provider recently. He tells me that during the encounter, no specific abnormalities were identified. He received a phone call later because of abnormal lab results and he was directed to the emergency department. While in the emergency department, he had a Sanchez catheter placed and over a liter of urine was obtained. He had a CT scan done without contrast and there was bilateral hydronephrosis and hydroureter all the way down to the bladder. His serum creatinine was 4.2. We have no information about his baseline renal function. He does not recall having had a urinary tract infection or any type of urologic surgeries. He is unaware of any family history of prostate cancer PFSH All Active Problems (Updated 11/24/24 @ 15:56 by Javad Wood MD) Hydronephrosis (Acute) Anemia (Chronic) Renal failure (Chronic) Social History Smoking risk assessment performed?: No Alcohol Intake: former Drug use: Daily Substance use type: marijuana Details: Pt states he used to smoke marijuana daily. Housing: apartment Do you feel safe at home: Yes Do you feel safe in your relationship?: Yes Exam Narrative Exam Narrative: He appears chronically ill. It is difficult to keep him on point during our extended discussion. His vital signs are documented elsewhere His abdomen is flat and soft with no guarding or rebound tenderness There is a Sanchez catheter in place draining yellow urine He is awake and alert Results Last Vital Signs Temp 37.1 C 11/24/24 15:24 Pulse 65 11/24/24 15:24 Resp 15 11/24/24 15:24 BP 126/62 11/24/24 15:24 Pulse Ox 98 11/24/24 15:24 Labs 11/25/24 06:35 11/24/24 06:00 Labs: Laboratory Results - last 24 hr 11/23/24 11/24/24 11/24/24 14:10 05:35 06:00 WBC 8.04 RBC 3.03 L Hgb 8.4 L Hct 26.9 L MCV 89 MCH 27.7 MCHC 31.2 L RDW 17.4 H Plt Count 277 MPV 10.0 Immature Gran % 0.4 Neutrophils % 77.5 Lymphocytes % 13.7 Monocytes % 7.3 Eosinophils % 0.6 Basophils % 0.5 Nucleated RBC % 0.0 Absolute Neutrophils 6.23 Absolute Lymphocytes 1.10 L Absolute Monocytes 0.59 Absolute Eosinophils 0.05 Absolute Basophils 0.04 Sodium 145 Potassium 4.9 Chloride 111 H Carbon Dioxide 27.6 Anion Gap 6.4 BUN 55 H Creatinine 3.7 H* Est GFR (CKD-EPI 2020) 16.43 Glucose 89 Calcium 9.1 Magnesium 2.0 Iron 24 L TIBC 142 L Transferrin % Sat 17 L Troponin I Cancelled Vitamin B12 Cancelled Folate 11/24/24 11/24/24 06:00 06:00 WBC RBC Hgb Hct MCV MCH MCHC RDW Plt Count MPV Immature Gran % Neutrophils % Lymphocytes % Monocytes % Eosinophils % Basophils % Nucleated RBC % Absolute Neutrophils Absolute Lymphocytes Absolute Monocytes Absolute Eosinophils Absolute Basophils Sodium Potassium Chloride Carbon Dioxide Anion Gap BUN Creatinine Est GFR (CKD-EPI 2020) Glucose Calcium Magnesium Iron TIBC Transferrin % Sat Troponin I Vitamin B12 443 Folate Cancelled 18.0
--- NOTE | 2024-11-24 16:12 | CHAPLAIN ---
Jude was up in the chair when I visited. He said no one had checked in on him in two hours and I asked if he needed anything and he said he'd like to get up soon. I suggested he ring the call esteves, but he said he didn't want to bother anyone. Jude said he doesn't have any family nearby but does have some friends. They are aware that he's here because they brought him, Jude told me. He shared some personal history and seemed to enjoy having a conversation. I will continue to visit.
[2024-11-24 22:00] LABS: PSA, Diagnostic 17.1 ng/mL (<=6.5)
[2024-11-25 05:14] VITALS: BP 144/65; PULSE 57; RESP 16; TEMP 36.6; O2SAT 100
[2024-11-25 06:49] LABS: Abs Immature Grans 0.04 10^3/uL (0.0-0.06); Absolute Basophil Count 0.06 10^3/uL (0.0-0.2); Absolute Eosinophil Count 0.18 10^3/uL (0.0-0.7); Absolute Lymphocyte Count 1.45 10^3/uL (1.2-3.4); Absolute Monocyte Count 0.51 10^3/uL (0.1-0.8); Absolute Neutrophil Count 5.72 10^3/uL (1.2-6.7); Basophils % 0.8 %; Eosinophils % 2.3 %; HCT 27.8 % (40.0-50.0); HGB 9.1 g/dL (13.5-17.5); Immature Grans % 0.5 %; Lymphocytes % 18.2 %; MCH 28.1 pg (27.0-33.0); MCHC 32.7 % (32.0-36.0); MCV 86 fL (80-95); MPV 9.8 fL (8.0-11.0); Monocytes % 6.4 %; Neutrophils % 71.8 %; Platelet Count 335 10^3/uL (130-400); RBC 3.24 10^6/uL (4.36-5.78); RDW 17.2 % (11.8-14.1); RDW-SD 54.3 fL; WBC 7.96 10^3/uL (4.4-10.8)
[2024-11-25 07:04] LABS: Anion Gap 9.1 mmol/L (3-11); BUN 53 mg/dL (7-18); CO2 23.9 mmol/L (21.0-32.0); CREATININE 3.5 mg/dL (0.70-1.30); Calcium 9.1 mg/dL (8.5-10.1); Chloride 110 mmol/L (98-107); Estimated GFR 17.56 (mL/min/1.73m2); Glucose 96 mg/dL (74-106); Magnesium 1.9 mg/dL (1.8-2.4); Potassium 4.3 mmol/L (3.5-5.1); Sodium 143 mmol/L (136-145)
--- NOTE | 2024-11-25 08:42 | PDOC.CMPRO ---
Date of service: 11/25/24 Time of Service: 08:42 Care Management Progress Note Progress Note Text Progress Note Text: Benjamin was sitting up in bed when CM met with him. His friend Alexander was visiting at the time and participated in the conversation. Benjamin had a carrillo catheter inserted yesterday and understood Dr. Wood to say that he may need to keep it in place for several months. Benjamin has serious concerns about his ability to care for the catheter and empty the bag. He has stated that he will need help. CM explained that home health can reinforce the teaching he is receiving however they will not be available every time the bag needs to be emptied. Alexander asked what other options were available for support. CM explained that Benjamin refused to even have a PT evaluation so short term rehab would not be an option. After much discussion, Benjamin agreed to have a PT eval and to go to a SNF for STR if recommended. Discharge Potential Discharge Needs: PCP F/U Appt Anticipated Barriers to Discharge: None Identified Patient/Family Education Needs: Review discharge instructions, discuss Ask Me Three Transportation: Private vehicle Plan: Anticipate Jude will be discharged home when medically cleared. If home health services are ordered he may not accept them.He will follow up with his community providers and plan of care and transport with family. CM will follow and continue to assess for discharge needs. Social Determinants of Health Screening Social Determinants of Health last assessed: 11/25/24 Will the Patient Participate in the Screening?: Yes Do you worry about having a steady place to live?: no Problems where you live: no known problems In the past 12 months, have you had to go without electric, gas, oil or water in your home?: no Have you or anyone in your house had to go without enough food to eat?: no Has lack of transportation kept you from medical appointments or from doing things needed for daily living?: no Has anyone in your life made you feel unsafe or unsupported?: no How hard is it for you to pay for the very basics like food, housing, medical care, and heating? Would you say it is:: Somewhat hard Do you want help finding or keeping work or a job?: I do not need or want help If for any reason you need help with day-to-day activities such as bathing, preparing meals, shopping, managing finances, etc., do you get the help you need?: I could use a little more help How often do you feel lonely or isolated from those around you?: Never Do you speak a language other than Trinidadian at home?: No Does the patient want assistance with any of the above?: No Health Related Social Needs Health related social needs: problems related to housing/economic circumstances (Z59.89) and problems with daily activities (Z73.9)
[2024-11-25] MEDS: cefTRIAXone 1 GM/50 ML BAG IVPB (10:10)
[2024-11-25] MEDS: Normal Saline Flush 10 ML SYR IVP ×2 (10:10→20:33)
--- NOTE | 2024-11-25 13:50 | IN_ITS ---
PT Notes Visit Reasons: LAURY, WRIGHT Physical Therapy Inpatient Initial Evaluation Date: 11/25/2024 Referring Doctor: Neymar Gary MD PT Orders: PT CONSULT: Eval/Treat Precautions: Fall. Standard. Activity as tolerated. Patient Profile/Admitting Diagnosis: Vadim is a 73-year-old male admitted for management of renal failure and anemia. PMHX: All All Active Problems (Updated 11/23/24 @ 14:35 by Neymar Gary DO) Anemia (Chronic) Renal failure (Chronic) Social History/Home Situation: Lives on the third floor of an apartment building with a total of 19 steps to enter with a rail on one side. Has been holding onto franco and furnitures at home for stability. Has a couple of friends who help with grocery shopping. Equipment Owned/DME: None Subjective: Reported that he has had his tremors for quite a while now. Feels weak. Agreeable to doing short-term rehab before going home. Does not think that use of walker at home will be practical as there is no space for it. Objective: General Observation: Resting in bed. IV access through R UE. Sanchez catheter in place. Mental Status: Alert and oriented as to person, place, time, and purpose. Able to pay attention, focus, and respond appropriately. Pain: None reported Vital Signs: Closely moniotred by [facility] staff ROM: Right Upper Extremity: Shoulder Flexion allows up to 90 degrees. Shoulder abduction allows up to 90 degrees. Elbow flexion WFL. Wrist flexion WFL. Functional opening and closing of hand WFL. Left Upper Extremity: Shoulder Flexion allows up to 90 degrees. Shoulder abduction allows up to 90 degrees. Elbow flexion WFL. Wrist flexion WFL. Functional opening and closing of hand WFL. Right Lower Extremity: Hip flexion WFL. Hip abduction WFL. Knee flexion WFL. Ankle dorsiflexion to neutral only. Ankle plantarflexion WFL. Left Lower Extremity: Hip flexion WFL. Hip abduction WFL. Knee flexion WFL. Ankle dorsiflexion WFL. Ankle plantarflexion WFL. Strength: Right Upper Extremity: Shoulder flexors 3-/5. Shoulder abductors 3-/5. Elbow flexors 4-/5. Elbow extensors 4-/5. Computer Game Tester strong. Left Upper Extremity: Shoulder flexors 3-/5. Shoulder abductors 3-/5. Elbow flexors 4-/5. Elbow extensors 4-/5. Computer Game Tester strong. Right Lower Extremity: Hip flexors 4-/5. Hip abductors 4-/5. Knee flexors 4-/5. Knee extensors 4-/5. Ankle dorsiflexors 3-/5. Ankle plantarflexors 4-/5. Left Lower Extremity: Hip flexors 4-/5. Hip abductors 4-/5. Knee flexors 4-/5. Knee extensors 4-/5. Ankle dorsiflexors 4-/5. Ankle plantarflexors 4-/5. Bed Mobility/Transfers: Minimal cueing provided for use of B hands as needed for support, movement sequence, AD management, and posture to reduce fall risk and minimize pain report Supine to sit minimal assist Sit to supine minimal assist Sit to stand minimal assist Stand to sit minimal assist Bed to toilet seat minimal assist Toilet seat to chair minimal assist Gait: Facilitated safe and correct performance of level surface ambulation covering a distance of 150 feet +150 feet using front wheeled walker with minimal assist of PT and minimal verbal cueing for increased base of support, increased step height and length, AD management, and posture to increase stability. Tremors in trunk and limbs increased with activity. Fumbled minimally when he first made his right turn but no loss of balance. Denied headache, chest pain, and lightheadedness throughout session. Stairs: Guided patient with safe and correct performance of 6 x 4 inch steps and 4 x 6 inch steps while holding onto bilateral rails with step to gait pattern requiring minimal assist and minimal verbal cueing for correct movement sequence, weight distribution, and posture to minimize fall risk. Tremors in trunk and limbs increased with activity. Balance: Static Sitting: Normal Dynamic Sitting: Normal Static Standing: Fair Dynamic Standing: Fair Special Tests: Mobility Limitations Standardized Measure [facility] 6 clicks Basic Mobility Inpatient Short Form: Raw Score: 18 CMS Score: 47% deficit 4-stage Balance Test: Feet together <10 seconds Semi-tandem <10 seconds Full tandem deferred One-legged stance deferred Informed Consent/Education: Patient was instructed in purpose of PT consult and plan of care. Agreeable to proceed with established PT POC to achieve personal goals. ASSESSMENT: Patient had an episode of fecal incontinence right after walking. He asked to go to the bathroom but already had stool fall off before he could get to the bathroom. Tremors increased with movement. Base of support is much decreased and patients has increased tendency to shuffle without use of the front-wheeled walker. Patient contends that use of the walker is not practical at his partment as there is no space for it. Patient presents with clinical signs and symptoms consistent with current/admitting diagnoses that have resulted to mobility limitations, gait instability, generalized weakness, and overall ADL decline as demonstrated by the following impairment level findings: 1. Decreased strength to B UE/LE major muscle groups 2. Impaired sitting/standing balance 3. Impaired activity tolerance 4. Limitation of joint range of motion in B shoulders and B ankles Impairments are contributing to the following functional limitations: 1. Decline in bed mobility skills 2. Decline in transfer skills 3. Difficulty with ambulation without assistive device and physical assistance 4. Increased completion time for mobility ADL performance 5. Increased risk for falls 6. Difficulty with managing steps alone safely Patient is assessed as a 37878 moderate complexity based on the following: History: 73-year-old male with past medical history as indicated above Examination: Demonstrable impairment in strength, balance, and mobility level with underlying impairments and functional limitations as exhibited above as wel l as deficit score of 47% utilizing the [facility] Mobility Inpatient Short Form Presentation: Evolving Decision Makin moderate complexity Goals: Goals X1 week 1. Supine-Sit independent 2. Sit-Supine independent 3. Sit-Stand independent 4. Stand-Sit independent with no AD 5. Bed-Chair independent with no AD 6. Chair-Bed independent with no AD 7. Independent gait on level surface with use of FWW for at least 300 feet without report of pain nor dyspnea 8. Independent stair negotiation while holding onto B rails for at least 24 steps without report of pain nor dyspnea 9. Independent with home exercise program 10. Good static and dynamic standing balance/tolerance Plan of Care/Treatment Plan: 1-2x/day, 7 days/week x 1 week. Plan of care has been reviewed with the [facility] providing the service under Physical Therapy direction. Initiate Physical Therapy intervention for pain management as needed, strengthening, bed mobility, transfers, gait, stairs, balance training, and use of assistive device. DISCHARGE RECOMMENDATIONS: [] Home with no services [] [] Home with services [specify] [] Home with outpatient PT [] [X] SNF for continued rehabilitation. Patient will benefit from [facility] for continued skilled physical therapy services in order to progress mobility level, strength, and balance in preparation for a safe discharge to home. [] [facility] [] [] SNF versus LTC based on ability to participate and progress [] TREATMENT CODE/TIME: 92286 x 20 minutes for 1 unit, 32389 x 24 minutes for 2 units (13:50-14:34). Thank you for the opportunity to participate in the care of this patient. Eugenia Menchaca PT, DPT, CLT [facility] [place], [place]
--- NOTE | 2024-11-25 14:59 | W.PM.PROGNOT ---
Date of Service Date of service: 11/25/24 Time of Service: 15:06 Assessment and Plan Assessment and plan (1) Renal failure: Status: Chronic Assessment and plan: - LAURY, most likely post-renal - Cr has improved slightly, agree with urology that this has not been as dramatic a drop as expected. however, patient continues to have very good UO (3.4L out yesterday) - PSA = 17.1, defer to urology for further w/u - PT/OT eval ---> plan to consider SNF placement to help care for carrillo cath, CM working on this (2) Anemia: Status: Chronic Assessment and plan: - unclear if this is related to LAURY or if this a separate finding. normocytic - heme check stool - labs appear to be combination of ACD and Fe deficiency. on PO Fe repletion Subjective Subjective Interval history since last seen: Seen and examined. Patient is frustrated by being in the hospital, wants to be home but does not think he could care for the carrillo as needed. Patient lives alone, no children, is visually impaired. Carrillo continues to drain and patient denies any pain or other issues with this. No further diarrhea. Exam Const General: cooperative and comfortable Nutritional Appearance: thin Orientation: alert, awake and oriented x3 Neck Neck: normal visual inspection Resp Effort & Inspection: normal respiratory effort Auscultation: clear to auscultation bilaterally, no rales, no rhonchi and no wheezes Cardio Rate: regular rate Rhythm: regular rhythm Heart Sounds: S1 normal and S2 normal GI Inspection: normal to inspection Palpation: soft, no hepatosplenomegaly and nontender Other: carrillo --> clear yellow urine Neuro General: patient alert, patient awake and patient oriented x3 Objective Last Vital Signs Temp 36.6 C 11/25/24 05:14 Pulse 57 L 11/25/24 05:14 Resp 16 11/25/24 05:14 BP 144/65 H 11/25/24 05:14 Pulse Ox 100 11/25/24 05:14 Laboratory Results - last 24 hr 11/24/24 11/25/24 06:00 06:35 WBC 7.96 RBC 3.24 L Hgb 9.1 L Hct 27.8 L MCV 86 MCH 28.1 MCHC 32.7 RDW 17.2 H Plt Count 335 MPV 9.8 Immature Gran % 0.5 Neutrophils % 71.8 Lymphocytes % 18.2 Monocytes % 6.4 Eosinophils % 2.3 Basophils % 0.8 Nucleated RBC % 0.0 Absolute Neutrophils 5.72 Absolute Lymphocytes 1.45 Absolute Monocytes 0.51 Absolute Eosinophils 0.18 Absolute Basophils 0.06 Sodium 143 Potassium 4.3 Chloride 110 H Carbon Dioxide 23.9 Anion Gap 9.1 BUN 53 H Creatinine 3.5 H Est GFR (CKD-EPI 2020) 17.56 Glucose 96 Calcium 9.1 Magnesium 1.9 Prostate Specific Ag 17.1 H Time Spent with Patient Time Spent with Patient: 25-34 minutes Time was spent: preparing to see the patient(eg.review tests), ordering medications,tests, procedures, indepentently interpreting results, counseling the patient and care coordination
[2024-11-25 15:39] VITALS: BP 129/67; PULSE 71; RESP 18; TEMP 37.1; O2SAT 100
--- NOTE | 2024-11-25 17:59 | NUR.NOTE ---
patient doing well today, friend Alexander stopped in to visit who is someone pt has been listing as POC. Discussed with Alexander that she nor friend Arianna are willing to help pt do carrillo care at home as they have maritime officer jobs and are loose friends of the patient, not close friends or family. Alexander admitted to not knowing pt that well and feeling overwhelmed by trying to coordinate all his care and paperwork. Case management Ruby was pulled in to discuss situation with Alexander and pt and unburden Alexander. It was discussed in front of pt that going to a SNF may be more beneficial for pt as he feels he is not capable of maintaining his carrillo at home. CM discussed that a carrillo is not a proper qualifier for SNF but if he allows PT to eval him and needs for PT/OT then he may be able to go to SNF where he could in tandem receive carrillo care and education there until urology f/u. Alexander was pulled aside by this RN and CM Ruby to discuss if she thought this pt had capacity to care for himself at home, she admits at this time he seems to be forgetful more than usual, which potentially can be due to his ongoing UTI. This RN discussed with CM that she does not feel the pt going home is safe as he is not grasping or retaining any carrillo education. PT came to eval pt this afternoon and reported they are recommending SNF, which solves the issue of carrillo care at home. Patient and Alexander updated on the situation as well as MD Gary. Patient Nursing Note:
[2024-11-25] MEDS: Ferrous Sulfate 325 MG TAB PO (20:33)
[2024-11-25 20:40] VITALS: BP 139/72; PULSE 57; RESP 18; TEMP 36.8; O2SAT 100
[2024-11-26 07:08] LABS: Abs Immature Grans 0.02 10^3/uL (0.0-0.06); Absolute Basophil Count 0.04 10^3/uL (0.0-0.2); Absolute Eosinophil Count 0.29 10^3/uL (0.0-0.7); Absolute Lymphocyte Count 1.41 10^3/uL (1.2-3.4); Absolute Monocyte Count 0.44 10^3/uL (0.1-0.8); Absolute Neutrophil Count 4.33 10^3/uL (1.2-6.7); Basophils % 0.6 %; Eosinophils % 4.4 %; HCT 26.6 % (40.0-50.0); HGB 8.6 g/dL (13.5-17.5); Immature Grans % 0.3 %; Lymphocytes % 21.6 %; MCH 28.1 pg (27.0-33.0); MCHC 32.3 % (32.0-36.0); MCV 87 fL (80-95); MPV 9.5 fL (8.0-11.0); Monocytes % 6.7 %; Neutrophils % 66.4 %; Platelet Count 297 10^3/uL (130-400); RBC 3.06 10^6/uL (4.36-5.78); RDW 17.1 % (11.8-14.1); RDW-SD 54.4 fL; WBC 6.53 10^3/uL (4.4-10.8)
[2024-11-26 07:29] LABS: Anion Gap 7.1 mmol/L (3-11); BUN 53 mg/dL (7-18); CO2 26.9 mmol/L (21.0-32.0); CREATININE 3.1 mg/dL (0.70-1.30); Calcium 9.2 mg/dL (8.5-10.1); Chloride 110 mmol/L (98-107); Estimated GFR 20.32 (mL/min/1.73m2); Glucose 90 mg/dL (74-106); Magnesium 1.9 mg/dL (1.8-2.4); Potassium 4.1 mmol/L (3.5-5.1); Sodium 144 mmol/L (136-145)
[2024-11-26 07:54] VITALS: BP 138/65; PULSE 51; RESP 18; TEMP 36.8; O2SAT 99
[2024-11-26] MEDS: Ferrous Sulfate 325 MG TAB PO ×2 (08:39→19:51)
[2024-11-26] MEDS: Normal Saline Flush 10 ML SYR IVP ×2 (08:39→19:51)
[2024-11-26] MEDS: cefTRIAXone 1 GM/50 ML BAG IVPB (08:42)
--- NOTE | 2024-11-26 12:32 | W.PM.PROGNOT ---
Date of Service Date of service: 11/26/24 Time of Service: 12:32 Assessment and Plan Assessment and plan (1) Renal failure: Status: Chronic Assessment and plan: - LAURY, most likely post-renal - Cr continues to slowly improve, patient continues to have very good UO (1.8L out yesterday) - PSA = 17.1, defer to urology for further w/u - PT/OT eval ---> plan to consider SNF placement to help care for carrillo cath, CM working on this (2) Anemia: Status: Chronic Assessment and plan: - unclear if this is related to LAURY or if this a separate finding. normocytic - heme check stool - labs appear to be combination of ACD and Fe deficiency. on PO Fe repletion (3) UTI (urinary tract infection): Status: Acute Assessment and plan: - urine growing serratia - currently on IV CTX, day #3 of 7 Subjective Subjective Interval history since last seen: Seen and examined. No new issues, still seems unhappy with being in the hospital. Carrillo continues to drain, 1.8L output documented yesterday with improvement in creatinine. Exam Const General: cooperative and comfortable Orientation: alert, awake and oriented x3 Chest Chest: normal inspection of the chest Resp Effort & Inspection: normal respiratory effort Auscultation: clear to auscultation bilaterally, no rales, no rhonchi and no wheezes Cardio Rate: regular rate Rhythm: regular rhythm Heart Sounds: S1 normal and S2 normal Skin General skin exam: no rashes or lesions noted Neuro Cranial Nerves: CN's II-XI intact bilaterally Objective Last Vital Signs Temp 36.8 C 11/26/24 07:54 Pulse 51 L 11/26/24 07:54 Resp 18 11/26/24 07:54 BP 138/65 11/26/24 07:54 Pulse Ox 99 11/26/24 07:54 Laboratory Results - last 24 hr 11/26/24 07:00 WBC 6.53 RBC 3.06 L Hgb 8.6 L Hct 26.6 L MCV 87 MCH 28.1 MCHC 32.3 RDW 17.1 H Plt Count 297 MPV 9.5 Immature Gran % 0.3 Neutrophils % 66.4 Lymphocytes % 21.6 Monocytes % 6.7 Eosinophils % 4.4 Basophils % 0.6 Nucleated RBC % 0.0 Absolute Neutrophils 4.33 Absolute Lymphocytes 1.41 Absolute Monocytes 0.44 Absolute Eosinophils 0.29 Absolute Basophils 0.04 Sodium 144 Potassium 4.1 Chloride 110 H Carbon Dioxide 26.9 Anion Gap 7.1 BUN 53 H Creatinine 3.1 H Est GFR (CKD-EPI 2020) 20.32 Glucose 90 Calcium 9.2 Magnesium 1.9 Time Spent with Patient Time Spent with Patient: <25 minutes Time was spent: ordering medications,tests, procedures, indepentently interpreting results, counseling the patient and care coordination
--- NOTE | 2024-11-26 12:39 | PTTR_ITS ---
PT Notes Visit Reasons: LAURY, WRIGHT Inpatient Physical Therapy Treatment Note [facility] Date: November 26, 2024 PRECAUTIONS:Precautions: Fall. Standard. Activity as tolerated. SUBJECTIVE: Agreeable to physical therapy treatment session today. Patient sitting in bedside chair OBJECTIVE: ? PAIN: 0/10 Therapeutic Activities (24980s1): 25 minutes: Direct one-on-one instruction in dynamic activities to improve functional performance. ?? ? Bed Mobility/Transfers: Minimal cueing provided for use of B hands as needed for support, movement sequence, and posture to reduce fall risk and minimize pain report Supine to sit minimal assist Sit to supine minimal assist Sit to stand minimal assist Stand to sit minimal assist Gait: Morning session: Facilitated safe and correct performance of level surface ambulation covering a distance of 150 feet +150 feet using front wheeled walker with minimal assist of PT and minimal verbal cueing for increased base of support, increased step height and length, AD management, and posture to increase stability. Tremors in trunk and limbs increased with activity. Able to negotiate front wheel walker left and right independently with no loss of balance. Denied headache, chest pain, and lightheadedness throughout session. Afternoon session: Ambulates 75 feet from room to stairwell. Performs 12 standard height steps up and down using handrail on left with contact-guard x 1. Then ambulates 250 feet with front wheel walker and contact-guard x 1. Does present with resting tremor left upper extremity Stairs: Guided patient with safe and correct performance of 6 x 4 inch steps and 4 x 6 inch steps while holding onto bilateral rails with step to gait pattern requiring contact-guard and minimal verbal cueing for correct movement sequence, weight distribution, and posture to minimize fall risk. Tremors in trunk and limbs increased with activity. Slight deviation with walker to right. ? ASSESSMENT:? Has some depth perception issues. Unfortunately his living situation is not situated where he can utilize a walker. Stairs will be essential for him as he has 3 flights to enter his dwelling. TREATMENT CODE/TIME: Session 1 -- x25 minutes for 2 units : [id number] 1 ; [id number] 25 mins (10:10-10:35 am) Session 2-- X30 minutes for 2 units : 81692 X1: 04439 X1 30 minutes (310?340 pm) DISCHARGE RECOMMENDATIONS: [] Home with no services [] [] Home with services [specify] [] Home with outpatient PT [] [X] SNF for continued rehabilitation. Patient will benefit from correction facility placement for continued skilled physical therapy services in order to progress mobility level, strength, and balance in preparation for a safe discharge to home. [] Group Home Care [] [] SNF versus LTC based on ability to participate and progress [] Disclaimer: This note was created using [employer] voice recognition software. It was reviewed for major content. However, there may be multiple small discrepancies and errors due to the voice recognition aspects of the software.
[2024-11-26 15:33] VITALS: BP 132/58; PULSE 64; RESP 18; TEMP 37.1; O2SAT 99
[2024-11-26 19:18] VITALS: BP 126/60; PULSE 66; RESP 16; TEMP 36.5; O2SAT 100
[2024-11-27 06:47] LABS: Abs Immature Grans 0.02 10^3/uL (0.0-0.06); Absolute Basophil Count 0.05 10^3/uL (0.0-0.2); Absolute Eosinophil Count 0.29 10^3/uL (0.0-0.7); Absolute Lymphocyte Count 1.59 10^3/uL (1.2-3.4); Absolute Monocyte Count 0.44 10^3/uL (0.1-0.8); Absolute Neutrophil Count 4.65 10^3/uL (1.2-6.7); Basophils % 0.7 %; Eosinophils % 4.1 %; HCT 27.5 % (40.0-50.0); HGB 8.8 g/dL (13.5-17.5); Immature Grans % 0.3 %; Lymphocytes % 22.6 %; MCH 27.8 pg (27.0-33.0); MCV 87 fL (80-95); Monocytes % 6.3 %; Platelet Count 318 10^3/uL (130-400); RBC 3.16 10^6/uL (4.36-5.78); RDW 16.9 % (11.8-14.1); RDW-SD 54.1 fL; WBC 7.04 10^3/uL (4.4-10.8)
[2024-11-27 07:00] LABS: Anion Gap 7.5 mmol/L (3-11); BUN 55 mg/dL (7-18); CO2 27.5 mmol/L (21.0-32.0); CREATININE 2.8 mg/dL (0.70-1.30); Calcium 9.1 mg/dL (8.5-10.1); Chloride 109 mmol/L (98-107); Estimated GFR 22.96 (mL/min/1.73m2); Glucose 90 mg/dL (74-106); Potassium 4.1 mmol/L (3.5-5.1); Sodium 144 mmol/L (136-145)
[2024-11-27 07:16] VITALS: BP 136/64; PULSE 53; RESP 16; TEMP 36.6; O2SAT 99
[2024-11-27] MEDS: Normal Saline Flush 10 ML SYR IVP ×3 (07:37→19:56)
[2024-11-27] MEDS: Ferrous Sulfate 325 MG TAB PO ×2 (07:37→19:56)
--- NOTE | 2024-11-27 09:02 | PT.INTREAT ---
PT Notes Visit Reasons: LAURY, WRIGHT Inpatient Physical Therapy Treatment Note [facility] Date: November 27, 2024 PRECAUTIONS:Precautions: Fall. Standard. Activity as tolerated. SUBJECTIVE: Patient sitting in bedside chair. Vadim states nursing changes IV from the right to the left arm due to a leak in the port. Admits he did not sleep very well last night. Is looking forward to walking. Admits he like to try the stairs again. OBJECTIVE: ? PAIN: 0/10 Therapeutic Activities (56993r3): Direct one-on-one instruction in dynamic activities to improve functional performance. ?? ? Bed Mobility/Transfers: Minimal cueing provided for use of B hands as needed for support, movement sequence, and posture to reduce fall risk and minimize pain report Sit to stand minimal assist with verbal cues to push off chair and not reach for walker to assist him standing. Stand to sit minimal assist with verbal cues offered for hand placement on chair. Gait: 05868 X1 Gait/Stairs: Morning session: Facilitated safe and correct performance of level surface ambulation covering a distance of 75 feet to stairwell. Then completes 12 stairs with handrail on left for ascension and handrail on right for descension with contact-guard x 1. Reciprocal step pattern. He elected to hold off on trying additional stairs stating he was feeling a little fatigued. Patient then walked 300+ feet with contact-guard and front wheel walker. Shortened stride length, shuffling type gait. Verbal cues offered for good foot clearance and minimal assist of PT and minimal verbal cueing for increased base of support, increased step height and length, AD management, and posture to increase stability. Tremors in trunk and limbs increased with activity. Able to negotiate front wheel walker left and right independently with no loss of balance. Denied headache, chest pain, and lightheadedness throughout session. Afternoon session: ? ASSESSMENT: Resting tremor left upper extremity little more observable today. TREATMENT CODE/TIME: Session 1 -- x30 minutes for 2 units : [id number] 1 ; [id number] 25 mins (8:20-8:55 am) DISCHARGE RECOMMENDATIONS: [] Home with no services [] [] Home with services [specify] [] Home with outpatient PT [] [X] SNF for continued rehabilitation. Patient will benefit from nursing home facility placement for continued skilled physical therapy services in order to progress mobility level, strength, and balance in preparation for a safe discharge to home. [] [facility] [] [] SNF versus LTC based on ability to participate and progress [] Disclaimer: This note was created using [employer] voice recognition software. It was reviewed for major content. However, there may be multiple small discrepancies and errors due to the voice recognition aspects of the software.
[2024-11-27] MEDS: cefTRIAXone 1 GM/50 ML BAG IVPB (09:45)
[2024-11-27] MEDS: Tamsulosin 0.4 MG CAPCR PO (11:32)
--- NOTE | 2024-11-27 13:15 | RT.EKG_ITS ---
APPROVED REPORT Exam: Resting ECG Reason for Exam: bradycardia, heart block? Patient Location: I HR:69 bpm ECG Measurements Heart Rate 69 AXIS RI 63 P 50 QRSd 109 QRS 16 QT 393 T 52 QTc 421 Conclusion Sinus rhythm...normal P axis, V-rate 50- 99 Normal Electrocardiogram Artifact in lead(s) I,II,III,aVR,aVL,aVF,V1,V3,V4,V5,V6
[2024-11-27 14:49] VITALS: BP 101/56; PULSE 72; RESP 16; TEMP 36.6; O2SAT 98
--- NOTE | 2024-11-27 14:55 | W.PM.PROGNOT ---
Date of Service Date of service: 11/27/24 Time of Service: 11:55 Assessment and Plan Assessment and plan (1) Renal failure: Status: Chronic Assessment and plan: Improving slowly, but very likely acute on chronic. I expect him to have significant CKD. Secondary to obstructive uropathy, likely also acute on chronic. U/a suggests infection rather than intrinsic disease, but repeat once he is better. he is unable to manage his catheter at home. Started on tamsulosin. Prostate only mildly enlarged on CT so I'm not sure finasteride would help. Will check in with urology 11/28 about voiding trial. (2) UTI (urinary tract infection): Status: Acute Assessment and plan: Associated with obstruction as above. Continue ceftriaxone now day #4 (3) Tremor: Status: Acute Assessment and plan: He has a complex tremor. Clear parkinsonian aspect with slower assymetric tremor, shuffling gait. He also seems to have an intention tremor component. Discussed trial on propranolol but HR is already low. EKG ordered to assess for heart block. Primidone is an options but I would be worried about balance. He seems to have some cognitive impairment as well as urinary retention. This could be neurodegenerative condition in Parkinsonian family. TSH and B12 normal, no clear mood or substance disorder. He hasn't had a lot of medical care, but this should be worked up as outpatient as this isn't the primary reason for admission. I will defer dopaminergic therapy for neurologic evaluation as outpatient. (4) Anemia: Status: Chronic Assessment and plan: iron deficient, also likely component of CKD. Should have colonoscopy and possibly EGD as outpatient. continue oral iron. I don't think this is bad enough to be significant cause of cognitive impairment. Subjective Subjective Patient reports: no new complaints and tolerating a regular diet; denies nausea, vomiting, shortness of breath or fever Interval history since last seen: events: Evaluated by PT, recommending SNF He is still uncertain about dealing with a carrillo at home. He has trouble taking care of himself. He has had tremor for months to years. He isn't sure about family history, father young. He states he is unsteady on his feet but thinks it is related to his depth perception with one lazy eye on left. He doesn't remember things well like what we talked about earlier this morning. Exam Narrative Exam Narrative: Alert, oriented to self and place, but looses track of conversation, tangential, looses thought mid sentence. CV: RRR, no m/g/r Resp: CTAB, nl effort ABD: +BS, flat and soft with no guarding or rebound tendernes, carrillo catheter in place draining yellow urine Ext: NT, no edema Neuro: Resting tremor left hand comes/goes, pill rolling. Also mellissa intention tremor. Left eye deviates medially, CN otherwise grossly intact. Movements are somewhat slow and stiff diffusely. Objective Last Vital Signs Temp 36.6 C 11/27/24 14:49 Pulse 72 11/27/24 14:49 Resp 16 11/27/24 14:49 BP 101/56 L 11/27/24 14:49 Pulse Ox 98 11/27/24 14:49 Laboratory Results - last 24 hr 11/27/24 06:35 WBC 7.04 RBC 3.16 L Hgb 8.8 L Hct 27.5 L MCV 87 MCH 27.8 MCHC 32.0 RDW 16.9 H Plt Count 318 MPV 10.0 Immature Gran % 0.3 Neutrophils % 66.0 Lymphocytes % 22.6 Monocytes % 6.3 Eosinophils % 4.1 Basophils % 0.7 Nucleated RBC % 0.0 Absolute Neutrophils 4.65 Absolute Lymphocytes 1.59 Absolute Monocytes 0.44 Absolute Eosinophils 0.29 Absolute Basophils 0.05 Sodium 144 Potassium 4.1 Chloride 109 H Carbon Dioxide 27.5 Anion Gap 7.5 BUN 55 H Creatinine 2.8 H Est GFR (CKD-EPI 2020) 22.96 Glucose 90 Calcium 9.1 Time Spent with Patient Time Spent with Patient: >50 minutes Time was spent: preparing to see the patient(eg.review tests), obtaining and/or reviewing separately otained hiistory, ordering medications,tests, procedures, referring, communicating with other health care administrative tech, indepentently interpreting results, counseling the patient and care coordination
[2024-11-27 20:55] VITALS: BP 126/74; PULSE 84; RESP 16; TEMP 36.6; O2SAT 96
[2024-11-28 06:14] VITALS: BP 152/75; PULSE 56; RESP 16; TEMP 36.7; O2SAT 100
[2024-11-28] MEDS: Ferrous Sulfate 325 MG TAB PO ×2 (08:49→19:33)
[2024-11-28] MEDS: Tamsulosin 0.4 MG CAPCR PO (08:49)
[2024-11-28] MEDS: Normal Saline Flush 10 ML SYR IVP ×2 (08:50→19:34)
--- NOTE | 2024-11-28 08:50 | PT.INTREAT ---
PT Notes Visit Reasons: LAURY, WRIGHT Physical Therapy Inpatient Treatment Note Date: 11/28/2024 Precautions: Fall. Standard. Activity as tolerated. Subjective: Feels stronger. Happy to have had tried the real stairs here once over the weekend and today. Agreeable to doing a short-term SNF so he could be more independent and do without the walker as his place is so tight. Objective: General Observation: Resting in bed. IV access through R UE. Sanchez catheter in place. Telemetry in place. Mental Status: Alert and oriented as to person, place, time, and purpose. Able to pay attention, focus, and respond appropriately. Pain: None reported Vital Signs[facility] Bed Mobility/Transfers: Minimal cueing provided for use of B hands as needed for support, movement sequence, AD management, and posture to reduce fall risk and minimize pain report Sit to stand stand by assist with FWW Stand to sit stand by assist with FWW Bed to toilet seat stand by assist with FWW Toilet seat to chair stand by assist with FWW Gait: Facilitated safe and correct performance of level surface ambulation covering a distance of 150 feet +150 feet in the afternoon and 350 feet in the afternoon using front wheeled walker with stand by assist of PT and minimal verbal cueing for increased base of support, increased step height and length, AD management, and posture to increase stability. No LOB, Shakiness less today compared to last Thursday. Stairs: Guided patient with safe and correct performance of 48 x 6 inch steps (utilized actual steps from second floor med surg to third floor) while holding onto one rail with both hands with slow [id number] gait pattern requiring ocassional contact guard assist and minimal verbal cueing for correct movement sequence, weight distribution, and posture to minimize fall risk. Balance: Static Sitting: Normal Dynamic Sitting: Normal Static Standing: Fair Dynamic Standing: Fair THERA EX: Worked on increasing B LE strength with direct one-on-one instruction in performing exercises as follows while holding onto window pane in patient's room: Bilateral heel raises x 10 Partial knee bends x 10 Standing back kicks x 10 Sidestepping to R and L x 10 for 3 reps ASSESSMENT: Improved actitivy tolerance and independence utilizing front-wheeld walker. Patient needs to be able to perform independent ambulation using no assistive device vs use of cane as there is no room for a FWW in his place of residence. Balance remains precarious as patient had a near LOB doing first sidestep to R needing minimal assist of PT for safety. He was able to gain better control during his second and third try at same activity. Plan of Care/Treatment Plan: 1-2x/day, 7 days/week x 1 week. Plan of care has been reviewed with the PEDIATRIC SPEECH LANGUAGE PATHOLOGIST providing the service under Physical Therapy direction. Initiate Physical Therapy intervention for pain management as needed, strengthening, bed mobility, transfers, gait, stairs, balance training, and use of assistive device. DISCHARGE RECOMMENDATIONS: [] Home with no services [] [] Home with services [specify] [] Home with outpatient PT [] [X] SNF for continued rehabilitation. Patient will benefit from jail facility placement for continued skilled physical therapy services in order to progress mobility level, strength, and balance in preparation for a safe discharge to home. [] [facility] [] [] SNF versus LTC based on ability to participate and progress [] TREATMENT CODE/TIME: Session1 -- 18908 x 27 minutes for 2 units (08:50-09:17). Session 2--63637 x 15 minutes for 1 unit, 82768 x 12 minutes for 1 unit (14:53-15:20).
--- NOTE | 2024-11-28 08:57 | W.NUTRFU ---
Date of service: 11/28/24 Nutrition Note NOTE: Pt admitted after arriving in ED
--- NOTE | 2024-11-28 09:24 | W.PM.PROGNOT ---
Date of Service Date of service: 11/28/24 Time of Service: 09:24 Assessment and Plan Assessment and plan (1) Renal failure: Status: Chronic (2) Hydronephrosis: Status: Acute Assessment and plan: The patient tells me that he is comfortable with leaving the catheter in place, but he would certainly need help when it comes to managing his drainage bags. Our recommendations therefore, will really depend on his placement. If he is expected to go to a facility with nursing services, we would recommend leaving the catheter in place until his renal function stabilizes. At that point, we generally give a voiding trial and start with timed voiding (since the patient could not tell that his bladder was full even when there is over a liter of urine present). We would then monitor his serum creatinine to make sure we would not need to replace his indwelling catheter. It is a bit premature in the process for a voiding trial, but if the patient is likely to go home and we cannot arrange enough services to help with his drainage bag, we may be forced to perform a voiding trial sooner than later. We would need to understand that we would not expect the patient to empty his bladder completely, so I do not think I would monitor bladder scans in his particular case. We would however need to follow him rather closely with outpatient blood work. I agree with Dr. Donnelly that finasteride would be unlikely to make much of a difference especially at this point in his recovery. We did find that the patient has an elevated PSA of 17 ng/mL on admission. Again, with his lack of previous medical care, we have no idea what this gentleman's baseline might be and how much of the PSA elevation is related to retention versus a possible malignancy. Continued monitoring makes the most sense at this point. Subjective Subjective Interval history since last seen: His indwelling urethral catheter continues to drain well, but he has not been able to manage the drainage bags on his own. He believes his vision is the biggest impediment for him. Exam Narrative Exam Narrative: He does not appear septic or toxic His vital signs are documented elsewhere He is awake and alert The urine in his catheter drainage bag is quite clear Objective Last Vital Signs Temp 36.7 C 11/28/24 06:14 Pulse 56 L 11/28/24 06:14 Resp 16 11/28/24 06:14 BP 152/75 H 11/28/24 06:14 Pulse Ox 100 11/28/24 06:14 Time Spent with Patient Time Spent with Patient: <25 minutes Time was spent: preparing to see the patient(eg.review tests), obtaining and/or reviewing separately otained hiistory, referring, communicating with other health rn care transition and counseling the patient
[2024-11-28] MEDS: cefTRIAXone 1 GM/50 ML BAG IVPB (09:56)
--- NOTE | 2024-11-28 10:32 | NUR.NOTE ---
patient Axox4 this shift, denies pain, discussed d/c to SNF in rounds, pending acceptance. Discussed carrillo continuation with MD Wood this AM while at SNF. Still questions in place regarding whether pt has full capacity or not. Unclear what is safest for patient regarding post SNF placement. Care management following. Patient worked with PT this AM, sitting in chair with chair alarm on, call esteves in reach, on IV rocephin for UTI. Nursing Note:
[2024-11-28 11:05] LABS: Anion Gap 8.3 mmol/L (3-11); BUN 57 mg/dL (7-18); CO2 27.7 mmol/L (21.0-32.0); CREATININE 2.8 mg/dL (0.70-1.30); Calcium 9.1 mg/dL (8.5-10.1); Chloride 107 mmol/L (98-107); Estimated GFR 22.96 (mL/min/1.73m2); Glucose 129 mg/dL (74-106); Potassium 4.2 mmol/L (3.5-5.1); Sodium 143 mmol/L (136-145)
[2024-11-28 14:25] VITALS: BP 110/57; PULSE 66; RESP 16; TEMP 37.7; O2SAT 98
--- NOTE | 2024-11-28 15:09 | NUR.NOTE ---
patient currently ambulating around unit with PT, in good spirits, aware that SNF transfer will be tomorrow as acceptance did not happen in time today. Denies pain, had BM today, good appetite. Partial bath completed with shave. Nursing Note:
--- NOTE | 2024-11-28 15:33 | PGE_ITS ---
Date of Service Date of service: 11/28/24 Time of Service: 15:34 Assessment and Plan Assessment and plan (1) Renal failure: Status: Chronic Assessment and plan: Secondary to obstructive uropathy, likely acute on chronic. Leveling out today, likely reflecting stage 4 CKD U/a suggests infection rather than intrinsic disease, but repeat once he is better. he is unable to manage his catheter at home. Started on tamsulosin. Prostate only mildly enlarged on CT finasteride unlikely to help. Per urology, too soon for voiding trial. Plan is SNF so will leave carrillo. (2) UTI (urinary tract infection): Status: Acute Assessment and plan: Associated with obstruction as above. Continue ceftriaxone now day #5/7 antibiotics (3) Tremor: Status: Acute Assessment and plan: He has a complex tremor. Clear parkinsonian aspect with slower assymetric tremor, shuffling gait. He also seems to have an intention tremor component. Discussed trial on propranolol but HR is already low. EKG ordered to assess for heart block. Primidone is an options but I would be worried about balance. He seems to have some cognitive impairment as well as urinary retention. This could be neurodegenerative condition in Parkinsonian family. TSH and B12 normal, no clear mood or substance disorder. He hasn't had a lot of medical care, but this should be worked up as outpatient as this isn't the primary reason for admission. No signs of focal CVA on exam, eye finding is lifelong per patient. I will defer dopaminergic therapy for neurologic evaluation as outpatient. (4) Anemia: Status: Chronic Assessment and plan: iron deficient, also likely component of CKD. Should have colonoscopy and possibly EGD as outpatient. continue oral iron. (5) DVT prophylaxis: Status: Acute Assessment and plan: not high risk, ambulate Subjective Subjective Patient reports: no new complaints and tolerating a regular diet; denies diarrhea, nausea, vomiting, shortness of breath or fever Interval history since last seen: He denies pain. He is eating. He states he feels like he is weak all over over the past months to years, but no focal weakness. He feels unsteady on his feet, tends to fall right, but right leg isn't necessarily weak. Exam Narrative Exam Narrative: Alert, oriented to self and place, but looses track of conversation, tangential, looses thought mid sentence. CV: RRR, no m/g/r Resp: CTAB, nl effort ABD: +BS, flat and soft with no guarding or rebound tendernes, carrillo catheter in place draining yellow urine Ext: NT, 1+ ankle edema Neuro: Resting tremor left hand comes/goes, pill rolling. Also mellissa intention tremor. Left eye deviates medially, CN otherwise grossly intact. Movements are somewhat slow and stiff diffusely. strength symmetric in UE and LE Objective Last Vital Signs Temp 37.7 C H 11/28/24 14:25 Pulse 66 11/28/24 14:25 Resp 16 11/28/24 14:25 BP 110/57 L 11/28/24 14:25 Pulse Ox 98 11/28/24 14:25 Laboratory Results - last 24 hr 11/28/24 10:32 Sodium 143 Potassium 4.2 Chloride 107 Carbon Dioxide 27.7 Anion Gap 8.3 BUN 57 H Creatinine 2.8 H Est GFR (CKD-EPI 2020) 22.96 Glucose 129 H Calcium 9.1 Time Spent with Patient Time Spent with Patient: 35-49 minutes Time was spent: preparing to see the patient(eg.review tests), obtaining and/or reviewing separately otained hiistory, ordering medications,tests, procedures, referring, communicating with other health health care / medical job titles, indepentently interpreting results, counseling the patient and care coordination
--- NOTE | 2024-11-28 15:33 | PDOC.CMPRO ---
Date of service: 11/28/24 Time of Service: 15:33 Care Management Progress Note Progress Note Text Progress Note Text: Vadim was sitting up in the bedside chair when CM met with him today. Referral to SNF, [facility], had been sent on 11/25/24, but was never received. Referral was re-sent today. Vadim was informed of this by CM, and notified that hopefully he will be transferred tomorrow. Vadim stated that he knows he needs the care, but he has come to really enjoy the staff at [facility]. CM let him know that his insurance will not cover his hospital stay, but will cover STR, he reported duly noted. Discharge Potential Discharge Needs: Other (transfer to SNF for STR) Anticipated Barriers to Discharge: None Identified Patient/Family Education Needs: Review discharge instructions, discuss Ask Me Three Transportation: [facility] Plan: Anticipate that Vadim will be transferred to [facility] tomorrow. He will transport via [facility] private vehicle and continue per his plan of care. CM will continue to follow and will coordinate the discharge tomorrow. Social Determinants of Health Screening Social Determinants of Health last assessed: 11/28/24 Will the Patient Participate in the Screening?: Yes Do you worry about having a steady place to live?: no Problems where you live: no known problems In the past 12 months, have you had to go without electric, gas, oil or water in your home?: no Have you or anyone in your house had to go without enough food to eat?: no Has lack of transportation kept you from medical appointments or from doing things needed for daily living?: no Has anyone in your life made you feel unsafe or unsupported?: no How hard is it for you to pay for the very basics like food, housing, medical care, and heating? Would you say it is:: Somewhat hard Do you want help finding or keeping work or a job?: I do not need or want help If for any reason you need help with day-to-day activities such as bathing, preparing meals, shopping, managing finances, etc., do you get the help you need?: I could use a little more help How often do you feel lonely or isolated from those around you?: Never Do you speak a language other than Sami at home?: No Does the patient want assistance with any of the above?: No Health Related Social Needs Health related social needs: problems related to housing/economic circumstances (Z59.89) and problems with daily activities (Z73.9)
[2024-11-28 23:13] VITALS: BP 131/90; PULSE 61; RESP 18; TEMP 37; O2SAT 100
[2024-11-29 07:14] VITALS: BP 149/66; PULSE 59; RESP 17; TEMP 36.6; O2SAT 100
--- NOTE | 2024-11-29 08:03 | PTTR_ITS ---
PT Notes Visit Reasons: LAURY, WRIGHT Physical Therapy Inpatient Treatment Note Date: 11/29/2024 Precautions: Fall. Standard. Activity as tolerated. Subjective: More confident about doing steps. Still feels he needs more strengthening. Looking forward to going to the SNF for continued rehab. Hopes that he could safely use his cane again independently prior to going home. Objective: General Observation: Resting in bed. IV access through R UE. Sanchez catheter in place. Telemetry in place. Mental Status: Alert and oriented as to person, place, time, and purpose. Able to pay attention, focus, and respond appropriately. Pain: None reported Vital Signs: [facility] Bed Mobility/Transfers: Minimal cueing provided for use of B hands as needed for support, movement sequence, AD management, and posture to reduce fall risk and minimize pain report Sit to stand stand by assist with FWW Stand to sit stand by assist with FWW Bed to toilet seat stand by assist with FWW Toilet seat to chair stand by assist with FWW Gait: Facilitated safe and correct performance of level surface ambulation covering a distance of 150 feet +150 feet in the afternoon and 350 feet in the afternoon using front wheeled walker with stand by assist of PT and minimal verbal cueing for increased base of support, increased step height and length, AD management, and posture to increase stability. No LOB, Shakiness less today compared to last Thursday. Stairs: Guided patient with safe and correct performance of 48 x 6 inch steps (utilized actual steps from second floor med surg to third floor) while holding onto one rail with both hands with slow [id number]-sqgi-[id number] gait pattern requiring ocassional contact guard assist and minimal verbal cueing for correct movement sequence, weight distribution, and posture to minimize fall risk. Balance: Static Sitting: Normal Dynamic Sitting: Normal Static Standing: Fair Dynamic Standing: Fair THERA EX: Worked on increasing B LE strength with direct one-on-one instruction in performing exercises as follows while holding onto window pane in patient's room: Bilateral heel raises x 10 Partial knee bends x 10 Standing back kicks x 10 Sidestepping to R and L x 10 for 3 reps ASSESSMENT: Improved activity tolerance and independence utilizing front-wheeled walker. Patient needs to be able to perform independent ambulation using no assistive device vs use of cane as there is no room for a FWW in his place of residence. Movements are more purposeful and calculated using FWW. Tolerated a flight of steps with [id number] pattern while having both hands holding onto rail. Plan of Care/Treatment Plan: 1-2x/day, 7 days/week x 1 week. Plan of care has been reviewed with the DRYWALL FINISHER FOREMAN providing the service under Physical Therapy direction. Initiate Physical Therapy intervention for pain management as needed, strengthening, bed mobility, transfers, gait, stairs, balance training, and use of assistive device. DISCHARGE RECOMMENDATIONS: [] Home with no services [] [] Home with services [specify] [] Home with outpatient PT [] [X] SNF for continued rehabilitation. Patient will benefit from residential facility placement for continued skilled physical therapy services in order to progress mobility level, strength, and balance in preparation for a safe discharge to home. [] Nursing Home Care [] [] SNF versus LTC based on ability to participate and progress [] TREATMENT CODE/TIME: 61630 x 29 minutes for 2 units (08:05-08:32).
--- NOTE | 2024-11-29 09:13 | PDOC.CMDIS ---
Date of service: 11/29/24 Time of Service: 09:13 LACE Index Scoring Tool Questions: Length of Stay (in days): 4 - 6 Was the patient admitted via the E.D.?: Yes Comorbidities: Liver or Renal Disease E.D. Visits: 1 Answers: Total Score: 13 Risk of Readmission: High Risk Care Management Discharge Plan Reason for Hospitalization: Renal Failure Discharge Plan: Jude will transferred to [facility] later today. He will transport via [facility] and follow up with the facility providers and plan of care. Patient/Family Education Needs: Review discharge instructions, discuss Ask Me Three Services Needed at Discharge: Nursing Home Facility SDOH Health Related Social Needs: Health related social needs problems related to housing/economic circumstances (Z59.89), problems with daily activities (Z73.9)
[2024-11-29] MEDS: Normal Saline Flush 10 ML SYR IVP (09:36)
[2024-11-29] MEDS: Tamsulosin 0.4 MG CAPCR PO (09:36)
[2024-11-29] MEDS: Ferrous Sulfate 325 MG TAB PO (09:36)
--- NOTE | 2024-11-29 09:45 | DSE_ITS ---
Date of service: 11/29/24 Time of Service: 09:45 DS: Diagnosis Discharge Diagnosis (1) Renal failure: Status: Chronic (2) UTI (urinary tract infection): Status: Acute (3) Tremor: Status: Acute (4) Anemia: Status: Chronic (5) Stage 4 chronic kidney disease: Status: Acute (6) Bladder outlet obstruction: Status: Acute Discharge Plan Disposition Patient Disposition: Group Home Facility(SNF) Condition: Stable Discharge Details Reason For Visit: LAURY, WRIGHT Admit Date/Time: 11/23/24 14:45 Admit Provider: Neymar Gary Attending Provider: Neymar Gary Primary Care Provider: Td Haskins [facility] Hospital Course: 73 yo M who was not getting regular medical care and presented for a new patient visit 11/[address] [facility]. Labs revealed BUN and creatinine of 52/4.2 and he was told to go to the emergency room. His hemoglobin was 8.7. He had no symptoms other than general weakness/dizziness, anxiety, and tremor - none of which were acute. He arrived 11/24 and the creatinine was 3.7. CT revealed severe bilateral hydronephrosis and dilated ureters without stones. Carrillo was placed and drained 1300ml of urine. U/a was abnormal and grew serratia marcescens. He was admitted and treated with ceftriaxone, and the urine culture was sensitive. He recieved 7 days of IV ceftriaxone before discharge. He was noted to have poor coordination and unstable gait and some slow cognitive processing. This in combination of his chronic tremor are concerning for a neurodegenerative condition in the Parkinson family. He was resistant to trying medication, but was open to neurology evaluation as outpatient. His creatinine slowly improved but stabilized at 2.8. He appears to have chronic renal insufficiency stage 4 related to the chronic bladder outlet obstruction. He did see Dr. Wood. Tamsulosin was started in case he would like a trial of removing the carrillo in the future on follow up with urology. He should have follow up with nephrology non-urgently as well with assessment of phosphorus, PTH, vitamin D, albumin/cr, etc. His PSA was 17 and this should be followed. His anemia was stable between 8.6-9.1 hemoglobin with no active bleeding. He was mildly iron deficient with a transferrin saturation of 17%. There is also likely a component of anemia of CKD. He was started on iron supplument. Evaluation with colonoscopy and EGD was recommended. He wasn't sure about this. When his iron stores are improved he would be a candidate for erythropoetin t herapy if the hemoglobin remains <10. Home Meds and New Rx's Prescriptions: No Action No Known Home Meds Discharge Instructions Instructions: Chronic kidney disease, Diet for people with nondialysis chronic kidney disease Additional Instructions: You should follow up with Dr. Wood about the carrillo catheter. You should consider an endoscopy and colonoscopy to look for sources of blood loss such as colon cancer. You should see a kidney specialist at some point and take precautions with your kidneys. We placed a referral to see neurology. You may have a form of Parkinsons Referrals: Javad Wood MD [ [facility] STAFF PHYSICIAN] - Nancy Chavez MD [ [facility] STAFF PHYSICIAN] - (73 yo M who presented with renal failure secondary to bladder outlet obstruction after getting medical care for the first time in decades. He has chronic Parkinsonian resting and intention tremor, unstable gait, some increased tone, and cognitive impairment all concerning for neurodegenerative condition. ) Activity:: Activity as Tolerated Equipment/Supplies:: Walker Diet:: As Tolerated Discharge Orders Discharge Orders: Discharge Order (Routine); Ordered 11/29/24 Ordered By: Yaw Page DS: Summary Time Spent with Patient providing and/or coordinating discharge services: Greater than 30 minutes Status at Discharge Functional status at discharge: uses cane/walker Overall status at discharge: patient is back to baseline Mental Status: other (cognitive slowing, looses thought process) Speech and Movement: slowed movement Mood: congruent mood and other (cognitive slowing, looses thought process) Affect: normal affect Quality:SDOH Health Related Social Needs: Health related social needs problems related to housin g/economic circumstances (Z59.89), problems with daily activities (Z73.9) Exam Narrative Exam Narrative: Alert, oriented x 4, but looses track of conversation, tangential, looses thought mid sentence. CV: RRR, no m/g/r Resp: CTAB, nl effort ABD: soft, NT, carrillo catheter in place draining yellow urine Ext: NT, trace ankle edema Neuro: Resting tremor left hand comes/goes, pill rolling. Also mellissa intention tremor. Left eye deviates medially, CN otherwise grossly intact. Movements are somewhat slow and stiff diffusely. strength symmetric in UE and LE Psych Mental Status: other (cognitive slowing, looses thought process) Speech and Movement: slowed movement Mood: congruent mood and other (cognitive slowing, looses thought process) Affect: normal affect DS: Data Vitals/I&O Vitals and I&O: Vital Signs Temperature 36.6 C 11/29/24 07:14 Temperature Source Temporal Artery Scan 11/29/24 07:14 Pulse 59 L 11/29/24 07:14 Pulse Rhythm Regular 11/23/24 21:52 Respiratory Rate 17 11/29/24 07:14 Respiratory Effort Normal 11/23/24 21:52 Respiratory Depth Normal 11/23/24 21:52 Respiratory Pattern Normal 11/23/24 21:52 Blood Pressure 149/66 H 11/29/24 07:14 Blood Pressure Position Sitting 11/23/24 10:45 Pulse Oximetry 100 11/29/24 07:14 Oxygen Delivery Method Room Air 11/29/24 07:14 Oxygen Flow Rate 0 11/29/24 07:14 Pain Level 0 11/29/24 07:14 Comment $RN Notified 11/28/24 06:14 Intake & Output 11/28/24 11/28/24 11/29/24 11:59 23:59 11:59 Intake Total 7600 / 7850 250 / 7850 Output Total 1400 / 1750 350 / 1750 1700 / 1700 Balance 6200 / 6100 -100 / 6100 -1700 / -1700 Intake: IV 100 / 110 10 / 110 Oral 7500 / 7740 240 / 7740 Output: Urine 1400 / 1750 350 / 1750 1700 / 1700 Other: Urine Color Yellow Pale Pale Yellow Urine Appearance Clear Clear Clear Stool Size Moderate Stool Characteristics Formed Brown Data Completed and Pending Labs on day of discharge: Labs from last 24 hours 11/28/24 10:32 Sodium 143 Potassium 4.2 Chloride 107 Carbon Dioxide 27.7 Anion Gap 8.3 BUN 57 H Creatinine 2.8 H Est GFR (CKD-EPI 2020) 22.96 Glucose 129 H Calcium 9.1 11/25/24 14:31 Stool Stool Occult Blood (ZOE) - Pending Preliminary micro results at discharge 11/25/24 14:31 Stool Occult Blood (ZOE) - Pending Stool PFSH All Active Problems (Updated 11/29/24 @ 09:46 by Yaw Page) Bladder outlet obstruction (Acute) Stage 4 chronic kidney disease (Acute) DVT prophylaxis (Acute) Cognitive impairment (Acute) Elevated PSA (Acute) Tremor (Acute) UTI (urinary tract infection) (Acute) Hydronephrosis (Acute) Anemia (Chronic) Renal failure (Chronic) Social History Smoking risk assessment performed?: No Alcohol Intake: former Drug use: Daily Substance use type: marijuana Details: Pt states he used to smoke marijuana daily. Housing: apartment Do you feel safe at home: Yes Do you feel safe in your relationship?: Yes Time Spent with Patient Time Spent with Patient: 45-69 minutes Time was spent: preparing to see the patient(eg.review tests), obtaining and/or reviewing separately otained hiistory, ordering medications,tests, procedures, referring, communicating with other health sub acute care nurse, indepentently interpreting results, counseling the patient and care coordination
--- NOTE | 2024-11-29 12:56 | NUR.NOTE ---
report called to [facility], report given to KAROLYN, PIV removed from pt, changing to clothes with OCCUPATIONAL THERAPY SPECIALIST at this time, pending RCT pickup momentarily. Going will carrillo catheter. Nursing Note:
== END 2024-11-29 13:08 | disposition skilled nursing facility (03) | DRG 690 ==
LOC: ER 13:55 → EDHOLD 19:53 → MS 21:39
PROVIDERS: Admitting Provider Hospitalist; Emergency Provider Emergency Medicine; PCP Family Medicine; Responsible Provider Family Medicine; Visit Provider Hospitalist
DX: N17.9 Acute kidney failure, unspecified; N18.4 Chronic kidney disease, stage 4 (severe); N32.0 Bladder-neck obstruction; F12.90 Cannabis use, unspecified, uncomplicated; N13.6 Pyonephrosis; R33.9 Retention of urine, unspecified; R41.89 Other symptoms and signs involving cognitive functions and awareness; D50.9 Iron deficiency anemia, unspecified; G25.0 Essential tremor; B96.89 Other specified bacterial agents as the cause of diseases classified elsewhere
CPT/HCPCS: 00123; 36415; 51702; 76775; 76857; 80048; 80053; 87077; 96365; 97110; 97116; 97162; 97166; 97530; 99222; 99232; 99285; 74176; 81003; 81015; 82272; 82607; 82746; 83540; 83550; 83735; 84153; 84484; 85025; 87086; 87186; 93005; 93010; 99223; 99233; 99239; J0696; J1644

== ENCOUNTER → 2024-11-24 08:25 | Outpatient (BNVA) | payer MEDICARE, SELFPAY | PROVIDERS: PCP Family Medicine; Referring Provider Family Medicine; Visit Provider Urology ==

== ENCOUNTER 2024-12-13 12:32 | Emergency (ER) | payer MEDICARE, SELFPAY ==
[2024-12-13 12:27] VITALS: BP 154/77; PULSE 64; RESP 20; O2SAT 99
[2024-12-13 12:38] VITALS: PULSE 64; RESP 16; TEMP 36.6; O2SAT 99
--- NOTE | 2024-12-13 13:00 | DI.CT_ITS ---
Exam(s) CT HEAD WO EXAM: CT HEAD WO CLINICAL HISTORY: Weakness. TECHNIQUE: Imaging Protocol: Axial computed tomography images with coronal and sagittal reformatted images were created and reviewed COMPARISON: No exams were available for comparison FINDINGS: Ventricles and Extra axial spaces: Normal in size and morphology for the patient's age. Hemorrhage: None. Cerebral parenchyma: There is no evidence of an acute territorial infarct. There are areas of decrea sed attenuation in the white matter consistent with chronic microvascular ischemic disease. Midline shift: None. Brainstem/Cerebellum: Normal. Calvarium: Normal. Visualized Paranasal sinuses/Mastoids: Clear. Soft Tissues: Unremarkable. IMPRESSION: No acute intracranial process. RADIATION DOSE DELIVERED: 918.36mGy.cm Total DLP DATA REPOSITORY: All CT scans at this facility are submitted to the National Radiology Data Registry (NRDR) Dose Index Registry (DIR) with the [employer] (ACR). RADIATION OPTIMIZATION: All CT scans at this facility use at least one of these dose optimization te chniques: automated exposure control; mA and/or kV adjustment per patient size (includes targeted exa ms where dose is matched to clinical indication); or iterative reconstruction.
--- NOTE | 2024-12-13 13:04 | ED.GENADUL_ITS ---
Discharge Plan Disposition Patient Disposition: Home Condition: Stable Discharge Details Clinical Impression: Left-sided weakness, Tremor Primary Care Provider: Td Haskins ED Provider: Theresa Hollins Home Meds and New Rx's Prescriptions: New cephalexin 500 mg tablet 500 mg PO BID 10 Days Qty: 20 0RF Continued tamsulosin 0.4 mg Capsule 0.4 mg PO DAILY Qty: 0 0RF ferrous sulfate 325 mg (65 mg iron) Tablet 325 mg PO DAILY Qty: 0 0RF Discharge Instructions Instructions: How to Prevent Catheter Associated Urinary Tract Infections, Urinary Tract Infection, Adult ED, Weakness ED Additional Instructions: At this time your head CT without contrast shows no acute intracranial abnormality. There is some chronic microvascular ischemic disease and areas of decreased attenuation. This can be seen with aging or chronic high blood pressure. You do have slight weakness on the left side with a tremor which is chronic. Labs were drawn which are at your baseline, It does appear that you have evidence for urinary tract infection. You were given the first dose of an antibiotic here and 2 tablets to go. Please take the antibiotic twice daily with yogurt or a probiotic for the next 10 days. This also can attribute to some of the weakness. Follow up with primary care provider in 3-5 days. Return to ED sooner if any worsening or concerns. Thank you for allowing us to care for you today. Referrals: Td Haskins [Primary Care Provider] - 1 week HPI General Mode of arrival: EMS . Date/Time Provider Initiated Documentation: 12/13/24 13:01 . Limitations to Documentation: no limitations . Information obtained by: patient, RN notes reviewed and old records reviewed . HPI Narrative: 73-year-old male presents to the ER via EMS from [facility]. The initial report was that he had new Scales's palsy on the left side. He does have some weakness on the left upper extremity left lower extremity. He has had a tremor on the left side for about 6 to 7 years. Patient denies any complaints denies any headache recent falls chest pain or shortness of breath. He has no known new symptoms. No focal neurodeficits other than the extremity weakness noted on exam. No facial droop. He does follow commands. He does have a Sanchez reports he gets around with a walker. Related Data Home Medications ?Medication ?Instructions ?Recorded ?Confirmed ferrous sulfate 325 mg (65 mg 325 mg PO DAILY #0 tabs 11/29/24 12/13/24 iron) tablet tamsulosin 0.4 mg capsule 0.4 mg PO DAILY #0 caps 11/29/24 12/13/24 cephalexin 500 mg tablet 500 mg PO BID 10 days #20 tabs 12/13/24 Previous Rx's ?Medication ?Instructions ?Recorded ferrous sulfate 325 mg (65 mg 325 mg PO DAILY #0 tabs 11/29/24 iron) tablet tamsulosin 0.4 mg capsule 0.4 mg PO DAILY #0 caps 11/29/24 cephalexin 500 mg tablet 500 mg PO BID 10 days #20 tabs 12/13/24 Allergies Allergy/AdvReac Type Severity Reaction Status Date / Time No Known Allergies Allergy Verified 12/13/24 12:30 General Stated Complaint: GenMedical ANANT: 3 Review of Systems All systems reviewed & are unremarkable except as noted in HPI and below Constitutional Constitutional: Reports as per HPI and Reports weakness Neurologic Neurologic: Reports localized weakness (Left upper extremity left lower extremity.) and Reports weakness Exam Narrative Exam Narrative: Constitutional: Alert and oriented x3. Appears stated age. Thin body habitus. Head: Normocephalic, no trauma. Eyes: Pupils PERRL, Red reflex noted, EOM's intact. Eyelids symmetrical without lesions, discharge, or swelling. ENT: Bilateral TM's WNL, External ear normal to inspection, no mastoid TTP, swelling, or erythema, Nasal turbinates WNL, no nasal discharge. Normal dentition, Posterior pharynx WNL, no exudate. Chest: RRR, Normal S1, S2, distal pulses intact. Resp: Lungs clear to auscultation bilaterally, no wheezes, rales, or rhonchi. Abdomen: Soft, non-distended, Normoactive bowel sounds all [address] Musculoskeletal: Unable to assess gait, does have somewhat left-sided upper extremity and lower extremity weakness greater than the right, does have some tremors at rest to the left which is chronic. Skin: No suspicious rashes or lesions. Capillary refill less than 2 sec. Neurologic: Cranial nerves II-XII intact. Alert and oriented x 3. Motor: No deficits noted. Sensory: Intact bilaterally all 4 extremities. No facial droop, no pronator drift. Hematologic/Lymphatic: No ecchymosis, no lymphadenopathy. Course Vital Signs Vital signs: Vital Signs Pulse 64 12/13/24 12:27 Respiratory Rate 20 12/13/24 12:27 Blood Pressure 154/77 H 12/13/24 12:27 Pulse Oximetry 99 12/13/24 12:27 Temperature 36.6 C 12/13/24 12:38 Temperature Source Oral 12/13/24 12:38 Pulse 64 12/13/24 12:38 Respiratory Rate 16 12/13/24 12:38 Respiratory Effort Normal, Non-Labored 12/13/24 12:38 Respiratory Depth Normal 12/13/24 12:38 Respiratory Pattern Normal 12/13/24 12:38 Blood Pressure 154/77 H 12/13/24 12:27 Blood Pressure Position Sitting 12/13/24 12:27 Pulse Oximetry 99 12/13/24 12:38 Oxygen Delivery Method Room Air 12/13/24 12:38 Oxygen Flow Rate 0 12/13/24 12:27 Pain Level 0 12/13/24 12:38 Medical Decision Making 73-year-old male presents [facility] ER [facility] The initial report was that he had new Scales's palsy on the left side. He does have some weakness on the left upper extremity left lower extremity. He has had a tremor on the left side for about 6 to 7 years. Patient denies any complaints denies any headache recent falls chest pain or shortness of breath. He has no known new symptoms. No focal neurodeficits other than the extremity weakness noted on exam. No facial droop. He does follow commands. He does have a Sanchez reports he gets around with a walker. UA ordered due to patient having a Sanchez his last urinalysis shows UTI November 23, CT head without contrast, CBC CMP. CT is negative for any acute intracranial abnormality. There is some chronic microvascular ischemic disease and areas of decreased attenuation. CBC is at patient's baseline, no leukocytosis. CMP and urinalysis is pending at this time. Most likely plan is to discharge back to [facility] as patient has no acute focal neurodeficits here in the emergency department. Urinalysis shows evidence of UTI, positive blood small blood positive nitrites moderate leukocytes. Will give cephalexin here and prescription for cephalexin 500 mg twice daily x 10 days. Discussed results and home care with patient who verbalized understanding. Awaiting EMS transport back to [facility]. He remains alert and oriented x 4 all his questions were answered to the best of my ability. This text was generated using [email or web address] dictation system, please disregard any odd ities of phrase or misspellings. Medical Records Medical records reviewed: Yes I reviewed the patient's medical records. Imaging Data Radiologic Study: Imaging: CT Scan Radiologist's impression: EXAM: CT HEAD WO CLINICAL HISTORY: Weakness. TECHNIQUE: Imaging Protocol: Axial computed tomography images with coronal and sagittal reformatted images were created and reviewed COMPARISON: No exams were available for comparison FINDINGS: Ventricles and Extra axial spaces: Normal in size and morphology for the patient's age. Hemorrhage: None. Cerebral parenchyma: There is no evidence of an acute territorial infarct. There are areas of decreased attenuation in the white matter consistent with chronic microvascular ischemic disease. Midline shift: None. Brainstem/Cerebellum: Normal. Calvarium: Normal. Visualized Paranasal sinuses/Mastoids: Clear. Soft Tissues: Unremarkable. IMPRESSION: No acute intracranial process. Lab Data Lab results reviewed: Yes I reviewed the patient's lab results. Labs: 12/13/24 14:57 Urine - Reflex from Ua Urine Culture - Pending Laboratory Tests Range/Units 12/13/24 12/13/24 14:30 14:57 WBC (4.4-10.8) 10^3/uL 8.12 RBC (4.36-5.78) 10^6/uL 3.88 L Hgb (13.5-17.5) g/dL 11.1 L Hct (40.0-50.0) % 34.7 L MCV (80-95) fL 89 MCH (27.0-33.0) pg 28.6 MCHC (32.0-36.0) % 32.0 RDW (11.8-14.1) % 17.6 H Plt Count (130-400) 10^3/uL 229 MPV (8.0-11.0) fL 10.8 Immature Gran % % 0.4 Neutrophils % % 80.1 Lymphocytes % % 13.2 Monocytes % % 4.7 Eosinophils % % 1.0 Basophils % % 0.6 Nucleated RBC % (0.0-0.3) % 0.0 Absolute Neutrophils (1.2-6.7) 10^3/uL 6.51 Absolute Lymphocytes (1.2-3.4) 10^3/uL 1.07 L Absolute Monocytes (0.1-0.8) 10^3/uL 0.38 Absolute Eosinophils (0.0-0.7) 10^3/uL 0.08 Absolute Basophils (0.0-0.2) 10^3/uL 0.05 Sodium (136-145) mmol/L 142 Potassium (3.5-5.1) mmol/L 4.6 Chloride (98-107) mmol/L 107 Carbon Dioxide (21.0-32.0) mmol/L 26.5 Anion Gap (3-11) mmol/L 8.5 BUN (7-18) mg/dL 48 H Creatinine (0.70-1.30) mg/dL 2.1 H Est GFR (CKD-EPI 2020) (mL/min/1.73m2) 32.42 Glucose (74-106) mg/dL 102 Calcium (8.5-10.1) mg/dL 9.3 Total Bilirubin (0.2-1.0) mg/dL 0.4 AST (15-37) U/L 13 L ALT (16-63) U/L 17 Alkaline Phosphatase (46-116) U/L 57 Total Protein (6.4-8.2) g/dL 7.0 Albumin (3.4-5.0) g/dL 3.2 L Urine Color (Yellow) Yellow Urine Clarity (Clear) Cloudy Urine pH (5-8) 5.5 Ur Specific Delta (1.005-1.025) 1.015 Urine Protein (Neg-Trace) mg/dL 30 H Urine Ketones (Negative) mg/dL Negative Urine Blood (Negative) Small H Urine Nitrite (Negative) Positive H Urine Bilirubin (Negative) Negative Urine Urobilinogen (Up to 0.2) mg/dL 0.2 Ur Leukocyte Esterase (Negative) Moderate H Urine RBC (0-2) HPF Negative Urine WBC (0-5) HPF >50 H Ur Epithelial Cells (Negative) HPF Negative Urine Crystals (Negative) HPF Negative Urine Bacteria (Negative) HPF Moderate Urine Casts (Negative) LPF Negative Urine Mucus (Negative) Negative Ur Culture Indicated? Yes Urine Glucose (Negative) mg/dL Negative Quality:SDOH Health Related Social Needs: Health related social needs problems related to housin g/economic circumstances (Z59.89), problems with daily activities (Z73.9) PFSH All Active Problems (Updated 12/13/24 @ 15:01 by Theresa Hollins NP) Tremor (Acute) Left-sided weakness (Acute) Bladder outlet obstruction (Acute) Stage 4 chronic kidney disease (Acute) Cognitive impairment (Acute) Elevated PSA (Acute) Tremor (Acute) Hydronephrosis (Acute) Anemia (Chronic) Renal failure (Chronic) Social History Smoking/Tobacco Use Status: Former Tobacco Use Smoking risk assessment performed?: Yes Alcohol Intake: former Drug use: Current Sobriety Substance use type: marijuana Details: Pt states he used to smoke marijuana daily. Housing: apartment Do you feel safe at home: Yes Do you feel safe in your relationship?: Yes
[2024-12-13 14:41] LABS: Abs Immature Grans 0.03 10^3/uL (0.0-0.06); Absolute Basophil Count 0.05 10^3/uL (0.0-0.2); Absolute Eosinophil Count 0.08 10^3/uL (0.0-0.7); Absolute Lymphocyte Count 1.07 10^3/uL (1.2-3.4); Absolute Monocyte Count 0.38 10^3/uL (0.1-0.8); Absolute Neutrophil Count 6.51 10^3/uL (1.2-6.7); Basophils % 0.6 %; HCT 34.7 % (40.0-50.0); HGB 11.1 g/dL (13.5-17.5); Immature Grans % 0.4 %; Lymphocytes % 13.2 %; MCH 28.6 pg (27.0-33.0); MCV 89 fL (80-95); MPV 10.8 fL (8.0-11.0); Monocytes % 4.7 %; Neutrophils % 80.1 %; Platelet Count 229 10^3/uL (130-400); RBC 3.88 10^6/uL (4.36-5.78); RDW 17.6 % (11.8-14.1); RDW-SD 57.4 fL; WBC 8.12 10^3/uL (4.4-10.8)
[2024-12-13 14:57] LABS: ALT 17 U/L (16-63); AST 13 U/L (15-37); Albumin 3.2 g/dL (3.4-5.0); Alkaline Phosphatase 57 U/L (46-116); Anion Gap 8.5 mmol/L (3-11); BUN 48 mg/dL (7-18); Bilirubin, Total 0.4 mg/dL (0.2-1.0); CO2 26.5 mmol/L (21.0-32.0); CREATININE 2.1 mg/dL (0.70-1.30); Calcium 9.3 mg/dL (8.5-10.1); Chloride 107 mmol/L (98-107); Estimated GFR 32.42 (mL/min/1.73m2); Glucose 102 mg/dL (74-106); Potassium 4.6 mmol/L (3.5-5.1); Sodium 142 mmol/L (136-145)
[2024-12-13 15:19] LABS: Bilirubin Negative (Negative); Blood Small (Negative); Clarity Cloudy (Clear); Glucose Negative (Negative); Ketones Negative (Negative); Leukocyte Esterase Moderate (Negative); Nitrite Positive (Negative); Specific Gravity 1.015 (1.005-1.025); Urobilinogen 0.2 mg/dL (Up to 0.2); pH 5.5 (5-8)
[2024-12-13] MEDS: Cephalexin 500 MG CAP PO (15:40)
[2024-12-13] MEDS: Cephalexin 500 MG CAP, 2 CAPS/BTL PO (15:40)
[2024-12-13 15:43] VITALS: BP 155/93; PULSE 72; RESP 20; O2SAT 98
[2024-12-13 15:55] LABS: Epithelial Cells Negative HPF (Negative); RBC Negative HPF (0-2); WBC >50 HPF (0-5)
[2024-12-13 15:56] LABS: Bacteria Moderate HPF (Negative); C & S Indicated? Yes; Casts Negative LPF (Negative); Crystals Negative HPF (Negative); Mucus Negative (Negative)
== END 2024-12-13 16:00 | disposition home or self-care (01) ==
PROVIDERS: Emergency Provider Registered Nurse Emergency; PCP Family Medicine
DX: R25.1 Tremor, unspecified (principal); G81.92 Hemiplegia, unspecified affecting left dominant side; N39.0 Urinary tract infection, site not specified; N18.4 Chronic kidney disease, stage 4 (severe); Z96.0 Presence of urogenital implants; Z87.891 Personal history of nicotine dependence
CPT/HCPCS: 36415; 80053; 87077; 99284; 70450; 81003; 81015; 85025; 87086; 87186

== ENCOUNTER → 2025-01-05 13:45 | Outpatient (BNVA) | payer MEDICARE, SELFPAY | PROVIDERS: PCP Family Medicine; Referring Provider Family Medicine; Visit Provider Nurse Practitioner Gerontology | DX: R33.9 Retention of urine, unspecified (principal) | CPT/HCPCS: 51701 ==

== ENCOUNTER 2025-03-27 11:41 | Outpatient (REF) | payer MEDICARE, SELFPAY ==
[2025-03-27 11:58] LABS: Abs Immature Grans 0.02 10^3/uL (0.0-0.06); Absolute Basophil Count 0.05 10^3/uL (0.0-0.2); Absolute Eosinophil Count 0.15 10^3/uL (0.0-0.7); Absolute Lymphocyte Count 1.28 10^3/uL (1.2-3.4); Absolute Monocyte Count 0.47 10^3/uL (0.1-0.8); Absolute Neutrophil Count 4.66 10^3/uL (1.2-6.7); Basophils % 0.8 %; Eosinophils % 2.3 %; HCT 38.5 % (40.0-50.0); HGB 12.9 g/dL (13.5-17.5); Immature Grans % 0.3 %; Lymphocytes % 19.3 %; MCH 29.8 pg (27.0-33.0); MCHC 33.5 % (32.0-36.0); MCV 89 fL (80-95); MPV 11.3 fL (8.0-11.0); Monocytes % 7.1 %; Neutrophils % 70.2 %; Platelet Count 266 10^3/uL (130-400); RBC 4.33 10^6/uL (4.36-5.78); RDW-SD 42.3 fL; WBC 6.63 10^3/uL (4.4-10.8)
[2025-03-27 12:31] LABS: D-Dimer 1142 ng/mlFEU (<500)
[2025-03-27 12:42] LABS: ALT 25 U/L (16-63); AST 19 U/L (15-37); Albumin 3.4 g/dL (3.4-5.0); Alkaline Phosphatase 71 U/L (46-116); BUN 51 mg/dL (7-18); Bilirubin, Total 0.4 mg/dL (0.2-1.0); CREATININE 1.8 mg/dL (0.70-1.30); Calcium 8.9 mg/dL (8.5-10.1); Chloride 108 mmol/L (98-107); Estimated GFR 38.77 (mL/min/1.73m2); Glucose 102 mg/dL (74-106); NT-proBNP 569 pg/mL (<300); Potassium 4.3 mmol/L (3.5-5.1); Sodium 144 mmol/L (136-145); Total Protein 6.4 g/dL (6.4-8.2)
== END 2025-03-27 11:42 | disposition home or self-care (01) ==
LOC: LBN 11:41
PROVIDERS: PCP Family Medicine; Visit Provider Nurse Practitioner Adult Health
DX: L03.115 Cellulitis of right lower limb (principal); N18.4 Chronic kidney disease, stage 4 (severe)
CPT/HCPCS: 80053; 83880; 85025; 85379

== ENCOUNTER 2025-03-29 01:40 | Outpatient (CLI) | payer MEDICARE, SELFPAY ==
--- NOTE | 2025-03-29 | DI.US_ITS ---
Exam(s) US EXTREMITY VENOUS BI EXAM: US EXTREMITY VENOUS BI CLINICAL HISTORY: ? DVT, EDEMA,r60.9. TECHNIQUE: Bilateral lower extremity venous ultrasound performed using grayscale, color-flow, and spectral Doppler analysis. COMPARISON: No exams were available for comparison FINDINGS: The bilateral common femoral, femoral and popliteal veins demonstrate normal compressibility, augmentation, and color Doppler. The posterior tibial and parent veins are patent. There is edema in the subcutaneous fat of the lower leg. There is also a Hill's cyst measuring 2.5 x 1.6 x 1.7 cm on the right. IMPRESSION: Right: Negative for DVT lower leg edema and small Hill's cyst. Left: Negative for DVT DATA REPOSITORY:
== END 2025-03-29 02:00 ==
LOC: DI 01:40
PROVIDERS: PCP Family Medicine; Visit Provider Nurse Practitioner Adult Health
DX: R60.9 Edema, unspecified (principal)
CPT/HCPCS: 93970

== ENCOUNTER 2025-04-13 13:47 | Outpatient (REF) | payer MEDICARE, SELFPAY ==
[2025-04-13 14:18] LABS: Abs Immature Grans 0.01 10^3/uL (0.0-0.06); HCT 40.2 % (40.0-50.0); HGB 13.2 g/dL (13.5-17.5); Immature Grans % 0.2 %; MCH 29.9 pg (27.0-33.0); MCHC 32.8 % (32.0-36.0); MCV 91 fL (80-95); MPV 11.8 fL (8.0-11.0); Platelet Count 230 10^3/uL (130-400); RBC 4.42 10^6/uL (4.36-5.78); RDW 13.2 % (11.8-14.1); RDW-SD 44.1 fL; WBC 6.48 10^3/uL (4.4-10.8)
[2025-04-13 14:44] LABS: ALT 23 U/L (16-63); AST 14 U/L (15-37); Albumin 3.7 g/dL (3.4-5.0); Alkaline Phosphatase 73 U/L (46-116); Anion Gap 10.6 mmol/L (3-11); BUN 51 mg/dL (7-18); Bilirubin, Total 0.6 mg/dL (0.2-1.0); CO2 25.4 mmol/L (21.0-32.0); Calcium 9.1 mg/dL (8.5-10.1); Chloride 108 mmol/L (98-107); Estimated GFR 38.77 (mL/min/1.73m2); Glucose 99 mg/dL (74-106); NT-proBNP 438 pg/mL (<300); Potassium 4.4 mmol/L (3.5-5.1); Sodium 144 mmol/L (136-145); Total Protein 6.6 g/dL (6.4-8.2)
== END 2025-04-13 13:48 | disposition home or self-care (01) ==
LOC: LBN 13:47
PROVIDERS: PCP Family Medicine; Visit Provider Nurse Practitioner Adult Health
DX: N18.4 Chronic kidney disease, stage 4 (severe) (principal)
CPT/HCPCS: 80053; 83880; 85025

== ENCOUNTER → 2025-04-19 12:35 | Outpatient (BNVA) | payer MEDICARE, SELFPAY | PROVIDERS: PCP Family Medicine; Referring Provider Family Medicine; Visit Provider Psychiatry & Neurology Neurology | DX: G20.A1 Parkinson's disease without dyskinesia, without mention of fluctuations (principal) | CPT/HCPCS: 99215 ==

== ENCOUNTER 2025-05-04 18:17 | Outpatient (REF) | payer MEDICARE, SELFPAY ==
[2025-05-05 19:29] LABS: Legionella Ag Detection Urine Negative (Negative)
== END 2025-05-04 18:18 | disposition home or self-care (01) ==
LOC: LBN 18:17
PROVIDERS: PCP Family Medicine; Visit Provider Family Medicine
DX: A48.0 Gas gangrene (principal)
CPT/HCPCS: 87449

== ENCOUNTER 2025-06-01 18:23 | Outpatient (REF) | payer MEDICARE, SELFPAY ==
[2025-06-01 16:06] LABS: Glucose Negative (Negative)
[2025-06-01 16:20] LABS: RBC 0-2 HPF (0-2); WBC >50 HPF (0-5)
== END 2025-06-01 18:24 | disposition home or self-care (01) ==
LOC: LBN 18:23
PROVIDERS: PCP Family Medicine; Visit Provider Nurse Practitioner Adult Health
DX: N30.00 Acute cystitis without hematuria (principal)
CPT/HCPCS: 87077; 81003; 81015; 87086; 87186

== ENCOUNTER 2025-06-14 23:44 | Outpatient (REF) | payer MEDICARE, SELFPAY ==
[2025-06-14 23:58] LABS: Anion Gap 9.3 mmol/L (3-11); BUN 52 mg/dL (7-18); CO2 26.7 mmol/L (21.0-32.0); Calcium 8.8 mg/dL (8.5-10.1); Chloride 108 mmol/L (98-107); Estimated GFR 34.16 (mL/min/1.73m2); Glucose 113 mg/dL (74-106); Potassium 4.1 mmol/L (3.5-5.1); Sodium 144 mmol/L (136-145)
[2025-06-15 18:16] LABS: PSA, Diagnostic 25.1 ng/mL (<=6.5)
== END 2025-06-14 23:45 | disposition home or self-care (01) ==
LOC: LBN 23:44
PROVIDERS: PCP Family Medicine; Visit Provider Family Medicine
DX: R97.20 Elevated prostate specific antigen [PSA] (principal)
CPT/HCPCS: 80048; 84153

== ENCOUNTER 2025-07-17 02:42 | Emergency (ER) | payer MEDICARE, SELFPAY ==
[2025-07-17 02:43] VITALS: BP 141/96; PULSE 77; RESP 18; TEMP 36.9; O2SAT 95
--- NOTE | 2025-07-17 02:50 | ED.GENADUL_ITS ---
Discharge Plan Disposition Patient Disposition: [facility]) Condition: Good Discharge Details Clinical Impression: Complication, blocked Sanchez catheter, UTI (urinary tract infection) Primary Care Provider: Td Haskins ED Provider: Pablo Cardozo [facility]iva Rx's Prescriptions: New cefpodoxime 200 mg tablet 200 mg PO BID Qty: 14 0RF Rx Instructions: must administer with a meal/food Continued sennosides [Natural Senna Laxative] 8.6 mg tablet 8.6 mg PO DAILY tamsulosin 0.4 mg Capsule 0.4 mg PO DAILY Qty: 0 0RF ferrous sulfate 325 mg (65 mg iron) Tablet 325 mg PO DAILY Qty: 0 0RF polyethylene glycol 3350 [Miralax] 17 gram/dose powder 17 g PO DAILY melatonin 5 mg capsule 5 mg PO DAILY senna 8.6 mg capsule 8.6 mg PO DAILY Discharge Instructions Additional Instructions: You were seen in the ED for a blocked Sanchez catheter that was replaced and did not require irrigation. Your urine appears infected by urinalysis and we started you on cefpodoxime that you should take for one week. Return to ED for fever, back pain, abdominal pain, vomiting, other concerns. HPI General Mode of arrival: EMS . Date/Time Provider Initiated Documentation: 07/17/25 02:50 . Limitations to Documentation: no limitations . Information obtained by: patient and RN notes reviewed . HPI Narrative: Patient presents to ED for [facility] with Sanchez malfunction, suprapubic discomfort. Patient reports the catheter was changed two nights ago because of draining issues and hematuria. Seemed to be ok but now not draining again and pressure feeling present. No fever, back pain, vomiting. Urine does appear a little cloudy and red. Related Data Home Medications ?Medication ?Instructions ?Recorded ?Confirmed ferrous sulfate 325 mg (65 mg 325 mg PO DAILY #0 tabs 11/29/24 07/17/25 iron) tablet tamsulosin 0.4 mg capsule 0.4 mg PO DAILY #0 caps 03/0 01/2007/17/25 sennosides 8.6 mg tablet (Natural 8.6 mg PO DAILY 03/2907/17/25 Senna Laxative) cefpodoxime 200 mg tablet 200 mg PO BID #14 tabs 07/17 melatonin 5 mg capsule 5 mg PO DAILY 07/17/2507/17 polyethylene glycol 3350 17 17 g PO DAILY 07/17/25 gram/dose oral powder (Miralax) sennosides 8.6 mg capsule (senna) 8.6 mg PO DAILY 06/2907/17/25 Previous Rx's ?Medication ?Instructions ?Recorded ferrous sulfate 325 mg (65 mg 325 mg PO DAILY #0 tabs 11/29/24 iron) tablet tamsulosin 0.4 mg capsule 0.4 mg PO DAILY #0 caps 03/0 01/20 cefpodoxime 200 mg tablet 200 mg PO BID #14 tabs 07/17 Allergies Allergy/AdvReac Type Severity Reaction Status Date / Time No Known Allergies Allergy Verified 07/17/25 04:38 General Stated Complaint: Urinary ANANT: 4 Exam Narrative Exam Narrative: Const: WDWN elderly male in NAD. VS per triage. HEENT: NC/AT. Normal facial exam. Neck: Supple. Trachea midline. Lungs: Normal respiratory effort. GI: Soft/ND/NT. Neuro: A+O x 3. Normal speech, mentation. Cranial nerves II - XII grossly intact. No gross motor or sensory deficit. Significant tremor from Parkinson's. Course Vital Signs Vital signs: Vital Signs Temperature 98.4 F 07/17/25 02:43 Pulse 77 07/17/25 02:43 Respiratory Rate 18 07/17/25 02:43 Blood Pressure 141/96 H 07/17/25 02:43 Pulse Oximetry 95 07/17/25 02:43 Temperature 98.4 F 07/17/25 02:43 Temperature Source Tympanic 07/17/25 02:43 Pulse 77 07/17/25 02:43 Respiratory Rate 18 07/17/25 02:43 Blood Pressure 141/96 H 07/17/25 02:43 Blood Pressure Position Supine 07/17/25 02:43 Pulse Oximetry 95 07/17/25 02:43 Oxygen Delivery Method Room Air 07/17/25 02:43 Oxygen Flow Rate 0 07/17/25 02:43 Pain Level 8 07/17/25 02:43 Medical Decision Making Bladder scan shows ~650 ml present. Urine sent from newly placed cath and then nursing attempted to flush and clear presumed clot. Unable to flush so new three way Sanchez placed with some blood initial which cleared and then drained 900 ml. Urine now looks mostly clear. Urine does look infected by dip and micro and may be why having issues with blocking off. He otherwise looks and feels well. Previous urine cultures have not been resistant so will start on cefpodoxime 200mg BID for one week. Follow up with facility medical staff or PCP next week. Return precautions provided. Lab Data Lab results reviewed: Yes I reviewed the patient's lab results. Lab results narrative: see MDM Quality:SDOH Health Related Social Needs: Health related social needs house/econ circumstance da [place]ov[place] activities PFSH All Active Problems (Updated 07/17/25 @ 04:37 by Pablo Cardozo MD) UTI (urinary tract infection) (Acute) Complication, blocked Sanchez catheter (Acute) Parkinson disease (Chronic) Urinary retention (Acute) Bladder outlet obstruction (Acute) Stage 4 chronic kidney disease (Acute) Cognitive impairment (Acute) Elevated PSA (Acute) Hydronephrosis (Acute) Anemia (Chronic) Renal failure (Chronic) Social History Smoking/Tobacco Use Status: Former Tobacco Use Smoking risk assessment performed?: Yes Alcohol Intake: former Drug use: Current Sobriety Substance use type: marijuana Details: Pt states he used to smoke marijuana daily. Housing: apartment Do you feel safe at home: Yes Do you feel safe in your relationship?: Yes
[2025-07-17 04:08] LABS: Glucose Negative (Negative)
--- NOTE | 2025-07-17 04:14 | NUR.NOTE ---
Pt had a 16 bulgarian carrillo, I was unable to irrigate after 300 mL, initial bladder scan showed about 650, bladder scan showed 813 after irrigation attempt, pt pain increased, carrillo was replaced with a [address] cath, carrillo is draining well, blood and clots noted initially and turned to pale strawberry color, 850 mL out upon new carrillo insertion, pt pain resolved with new catheter, FPJ
[2025-07-17 04:26] LABS: C & S Indicated? Yes; RBC >50 HPF (0-2)
[2025-07-17 05:00] VITALS: BP 160/84; PULSE 74; RESP 16; O2SAT 97
[2025-07-17] MEDS: Cefpodoxime 200 MG TAB PO (05:00)
[2025-07-17 07:30] VITALS: BP 158/56; PULSE 61; RESP 16; O2SAT 95
--- NOTE | 2025-07-20 10:46 | NUR.NOTE ---
Accessed Pt chart to document antibiotics given to Pt for the Specimen Report. Report given to Providers.
== END 2025-07-17 07:30 | disposition skilled nursing facility (03) ==
PROVIDERS: Emergency Provider Emergency Medicine; PCP Family Medicine
DX: N39.0 Urinary tract infection, site not specified (principal); T83.091A Other mechanical complication of indwelling urethral catheter, initial encounter
CPT/HCPCS: 99283 ×2; 51702; 87077; 81003; 81015; 87086; 87186